=== PATIENT | female | born 1940 | race American Indian/Alaskan Native ===

== ENCOUNTER 2017-07-01 19:18 | Emergency (ER) | payer MEDICARE ==
[2017-07-01] MEDS ORDERED: Sodium Chloride 0.9% 1,000 ML IV ONE (20:04)
[2017-07-01] MEDS ORDERED: (Novolin R) Insulin Human Regular 100 units/ml vial IV STA (20:05)
[2017-07-01] MEDS ORDERED: Sodium Chloride 0.9% 1,000 ML ONE (20:12)
[2017-07-01] MEDS ORDERED: (Novolin R) Insulin Human Regular 100 units/ml vial ONE (20:12)
[2017-07-01 20:15] LABS: BASO # 0.1 K/uL (0.0-0.2); BASO % 0.9 % (0.0-2.0); EOS # 0.1 K/uL (0.0-0.7); EOS % 0.7 % (0.0-4.0); HEMOGLOBIN 12.7 g/dL (11.0-16.0); LYMPH # 3.8 K/uL (1.0-4.3); LYMPH % 35.9 % (20.0-40.0); MEAN CORPUSCULAR HEMOGLOBIN 30.8 pg (27.0-31.0); MEAN CORPUSCULAR HGB CONC 33.1 g/dL (33.0-37.0); MEAN PLATELET VOLUME 9.8 fL (7.2-11.7); MONO # 0.8 K/uL (0.0-0.8); MONO % 7.7 % (0.0-10.0); NEUT # 5.9 K/uL (1.8-7.0); NEUT % 54.8 % (50.0-75.0); NRBC % 0.1 % (0.0-2.0); RBC 4.14 Mil/uL (3.80-5.20); RED CELL DISTRIBUTION WIDTH 13.2 % (11.5-14.5); WHITE BLOOD COUNT 10.7 K/uL (4.8-10.8)
[2017-07-01 20:34] LABS: ALB/GLOB RATIO 1.2 (1.0-2.1); ALBUMIN 4.2 g/dL (3.5-5.0); ALT/SGPT 37 U/L (9-52); AST/SGOT 21 U/L (14-36); BLOOD UREA NITROGEN 20 mg/dL (7-17); CALCIUM 9.1 mg/dl (8.6-10.4); GFR AFRICAN-AMERICAN > 60; GFR NON-AFRICAN AMERICAN > 60
[2017-07-01 20:38] LABS: SQUAMOUS EPITHIAL 1 /hpf (0-5); URINE BILIRUBIN NEGATIVE (NEGATIVE); URINE BLOOD NEGATIVE (NEGATIVE); URINE CLARITY Clear (Clear); URINE COLOR Straw (YELLOW); URINE GLUCOSE (UA) 3+ mg/dL (Normal); URINE LEUKOCYTE ESTERASE NEG Leu/uL (Negative); URINE NITRATE NEGATIVE (NEGATIVE); URINE PROTEIN NEGATIVE (NEGATIVE); URINE UROBILINOGEN NORMAL mg/dL (0.2-1.0)
--- NOTE | 2017-07-01 21:33 | C.PDOC ---
History Of Present Illness 76 year old female brought in by daughters presents to ED for hyperglycemia and has a past medical history of diabetes mellitus. Confirm she was compliant with medication up until 2 years ago. (+) polyuria and polydipsia. Time Seen by Provider: 07/01/17 20:02 Chief Complaint (Nursing): High Blood Sugar History Per: Patient History/Exam Limitations: no limitations Current Diabetic Medications: None Causative (Exacerbating) Factor(s): Missed Taking Medication Past Medical History Reviewed: Historical Data, Nursing Documentation, Vital Signs Vital Signs: Last Vital Signs Temp 99 F 07/01/17 22:10 Pulse 80 07/01/17 22:10 Resp 16 07/01/17 22:10 BP 140/70 07/01/17 22:10 Pulse Ox 100 07/02/17 04:12 - Medical History PMH: Diabetes, HTN, Seizures Family History: States: No Known Family Hx - Social History Hx Alcohol Use: No Hx Substance Use: No Review Of Systems Except As Marked, All Systems Reviewed And Found Negative. Constitutional: Positive for: Other ((+) hyperglycemia) Gastrointestinal: Positive for: Other ((+) polydipsia) Genitourinary: Positive for: Other ((+) polyuria) Physical Exam - Physical Exam Appears: Well, No Acute Distress Skin: Normal Color, Warm, Dry Eye(s): bilateral: Normal Inspection, PERRL, EOMI Nose: Normal Oral Mucosa: Moist Tongue: Normal Appearing Lips: Normal Appearing Throat: Normal Neck: Normal Cardiovascular: Rhythm Regular Respiratory: Normal Breath Sounds Gastrointestinal/Abdominal: Normal Exam, Soft, No Tenderness Back: Normal Inspection Extremity: Normal ROM Neurological/Psych: Oriented x3, Normal Speech, Normal Cognition ED Course And Treatment - Laboratory Results Result Diagrams: 07/01/17 20:09 07/01/17 20:09 Lab Interpretation: Abnormal (++ glu, normal c02, neg ketones, + glucosuria, no ketones) O2 Sat by Pulse Oximetry: 100 (RA) Pulse Ox Interpretation: Normal - Radiology CXR: Interpreted by Me CXR Interpretation: Yes: No Acute Disease Progress Note: IVF, insulin, recheck and improved Reevaluation Time: 21:33 Reassessment Condition: Improved Medical Decision Making Medical Decision Making: uncontrolled DM without DKA (normal bicarb and no ketones) difficult to believe pt off all DM meds x 2 YEARS Restart Metformin PO and opt f/u. Disposition Doctor Will See Patient In The: Office Counseled Patient/Family Regarding: Studies Performed, Diagnosis - Disposition Referrals: Nicolas Cruz MD [Staff Provider] - Disposition: HOME/ ROUTINE Disposition Time: 21:34 Condition: GOOD Additional Instructions: Diabetes: Metformin 1000 mg twice a day with meals. Finger stick BEFORE breakfast and dinner and note in the small book that comes w the Finger Stick machine Diabetic diet: 4-5 small meals/day Bring the book of glucose readings to your next doctor's visit in 2-3 weeks Continue all other meds unchanged. Prescriptions: Glucose Meter [Blood Glucose Monitoring System] 1 dev XX PRN PRN #1 dev PRN Reason: diabetes Lancets/Blood Glucose Strips [Fora [id number] [facility]-Lnct] 1 each MC BID #60 combo..pkg MetFORMIN [glucoPHAGE] 1,000 mg PO BID #60 tab Instructions: Diabetes Mellitus Type 2 in Adults (ED) Forms: [employer] (Welsh) - Clinical Impression Clinical Impression: Hyperglycemia
[2017-07-01 22:11] VITALS: BP 140/70; PULSE 80; RESP 16; TEMP 99
[2017-07-02 04:12] VITALS: O2SAT 100
--- NOTE | 2017-07-02 08:35 | RAD ---
Chest x-ray single frontal view History: Diabetes. Comparison: None available. Findings: Diffuse increased interstitial lung markings bilaterally. Biapical pleural thickening with upper lobe granulomatous changes. Enlarged ectatic aorta. Right hilar prominence. Patchy bibasilar atelectasis. Degenerative changes in the spine with paravertebral osteophytes. Impression: Diffuse increased interstitial lung markings bilaterally. Biapical pleural thickening with upper lobe granulomatous changes. Enlarged ectatic aorta. Right hilar prominence. Patchy bibasilar atelectasis.
== END 2017-07-01 22:11 | disposition home or self-care (01) ==
LOC: C.ER 19:18
DX: E11.65 Type 2 diabetes mellitus with hyperglycemia (principal); I10 Essential (primary) hypertension
CPT/HCPCS: 71045; 80053; 81001; 82009; 82948; 85025; 99284; J7040

== ENCOUNTER 2017-12-14 12:18 | Emergency (ER) | payer MEDICARE ==
[2017-12-14 12:33] VITALS: BMI 20.7
[2017-12-14 13:42] LABS: BASO # 0.1 K/uL (0.0-0.2); BASO % 0.9 % (0.0-2.0); EOS # 0.1 K/uL (0.0-0.7); EOS % 1.2 % (0.0-4.0); HEMOGLOBIN 11.3 g/dL (11.0-16.0); LYMPH # 2.3 K/uL (1.0-4.3); LYMPH % 24.5 % (20.0-40.0); MEAN CELL VOLUME 93.2 fL (81.0-99.0); MEAN CORPUSCULAR HEMOGLOBIN 32.2 pg (27.0-31.0); MEAN CORPUSCULAR HGB CONC 34.6 g/dL (33.0-37.0); MEAN PLATELET VOLUME 8.3 fL (7.2-11.7); MONO # 0.8 K/uL (0.0-0.8); MONO % 8.3 % (0.0-10.0); NEUT % 65.1 % (50.0-75.0); RBC 3.51 Mil/uL (3.80-5.20); RED CELL DISTRIBUTION WIDTH 13.2 % (11.5-14.5); WHITE BLOOD COUNT 9.2 K/uL (4.8-10.8)
[2017-12-14 13:51] LABS: ALB/GLOB RATIO 1.6 (1.0-2.1); ALBUMIN 4.4 g/dL (3.5-5.0); ALT/SGPT 13 U/L (9-52); AST/SGOT 24 U/L (14-36); BLOOD UREA NITROGEN 14 mg/dL (7-17); CALCIUM 9.8 mg/dl (8.6-10.4); GFR AFRICAN-AMERICAN > 60; GFR NON-AFRICAN AMERICAN > 60
--- NOTE | 2017-12-14 14:25 | C.PDOC ---
History Of Present Illness 77 year old female sent to ED by her hazardous materials driver Dr. Blue for evaluation of low sodium level found on outpatient blood work (127). Patient denies chest pain, shortness of breath, headache, dizziness, weakness, or any other complaints at this time. Time Seen by Provider: 12/14/17 12:43 Chief Complaint (Nursing): Abnormal Labs History Per: Patient History/Exam Limitations: no limitations Severity: None Past Medical History Reviewed: Historical Data, Nursing Documentation, Vital Signs Vital Signs: Last Vital Signs Temp 98.4 F 12/14/17 14:35 Pulse 75 12/14/17 14:35 Resp 20 12/14/17 14:35 BP 138/70 12/14/17 14:35 Pulse Ox 99 12/15/17 16:37 - Medical History PMH: Diabetes, HTN, Seizures, TIA Family History: States: Unknown Family Hx - Social History Hx Alcohol Use: No Hx Substance Use: No Review Of Systems Except As Marked, All Systems Reviewed And Found Negative. Constitutional: Negative for: Fever, Chills Cardiovascular: Negative for: Chest Pain, Palpitations Respiratory: Negative for: Cough, Shortness of Breath Gastrointestinal: Negative for: Nausea, Vomiting, Abdominal Pain Neurological: Negative for: Weakness, Numbness, Headache, Dizziness Physical Exam - Physical Exam Appears: Well, Non-toxic, No Acute Distress Skin: Normal Color, Warm, Dry Head: Atraumatic, Normacephalic Eye(s): bilateral: Normal Inspection Oral Mucosa: Moist Neck: Supple Cardiovascular: Rhythm Regular, No Murmur Respiratory: Normal Breath Sounds, No Rales, No Rhonchi, No Wheezing Gastrointestinal/Abdominal: Normal Exam, Bowel Sounds, Soft, No Tenderness Extremity: Normal ROM, No Pedal Edema Neurological/Psych: Oriented x3, Normal Speech, Normal Cognition Gait: Steady ED Course And Treatment - Laboratory Results Result Diagrams: 12/14/17 13:35 12/14/17 13:35 O2 Sat by Pulse Oximetry: 99 (RA) Pulse Ox Interpretation: Normal Progress Note: Blood work ordered and reviewed. Patient's blood work in ED is 129, and patient is asymptomatic. Call placed to Dr. Blue's service, no call back. Reevaluation Time: 14:45 Reassessment Condition: Improved (Patient is resting comfortably, in no distress , has no physical complaints. She was instructed to follow up with Dr. Blue within 1 week, and understands she should return to ED if she has any concerning symptoms.) Disposition Counseled Patient/Family Regarding: Studies Performed, Diagnosis, Need For Followup - Disposition Referrals: Nicolas Cruz MD [Staff Provider] - Steffen Blue MD [Non-Staff] - Disposition: HOME/ ROUTINE Disposition Time: 14:45 Condition: STABLE Additional Instructions: FOLLOW UP WITH YOUR DOCTOR IN 1-2 DAYS RETURN TO ER IF YOU HAVE ANY CONCERNING SYMPTOMS Instructions: Hyponatremia (DC) Forms: [employer] (Brazilian) Print Language: TAJIK - Clinical Impression Clinical Impression: Hyponatremia - Scribe Statement The provider has reviewed the documentation as recorded by the Scribe Deysi Da Silva All medical record entries made by the Glennibtaiwo were at my direction and personally dictated by me. I have reviewed the chart and agree that the record accurately reflects my personal performance of the history, physical exam, medical decision making, and the department course for this patient. I have also personally directed, reviewed, and agree with the discharge instructions and disposition.
[2017-12-14 14:36] VITALS: BP 138/70; PULSE 75; RESP 20; TEMP 98.4
[2017-12-15 09:31] VITALS: O2SAT 99
== END 2017-12-14 14:49 | disposition home or self-care (01) ==
LOC: C.ER 12:18
DX: E87.1 Hypo-osmolality and hyponatremia (principal); I10 Essential (primary) hypertension; E11.9 Type 2 diabetes mellitus without complications; Z86.73 Personal history of transient ischemic attack (TIA), and cerebral infarction without residual deficits

== ENCOUNTER 2018-04-08 12:55 | Inpatient (IN) | payer MEDICARE ==
[2018-04-08 12:56] VITALS: BMI 20.7
--- NOTE | 2018-04-08 13:45 | C.PDOC ---
History Of Present Illness 77yo female, with history of diabetes, hypertension, CVA, seizure, comes to ER accompanied by her son, who reports for the past week, patient has had generalized weakness. History obtained primary from the son who states for the past 4 months, the patient has been getting progressively weak. He states at baseline she has difficulty walking secondary to a stroke; he states the patient now no longer wants to walk far or leave her bed as she is weak. Patient has also been having frequent falls due to weakness and her LEFT leg (stronger leg) is starting to shake when she attempts to walk. According to the son, patient has also been having more frequent bowel movements than usual and at time she is unable to make it to the bathroom and has a bowel movement in her diaper. She denies any new focal weakness, chest pain, shortness of breath, abdominal pain, headache, blurry vision or bodyaches. The son spoke with patient's PMD y , who recommended an ER visit. PMD: Dr. Cruz Time Seen by Provider: 04/08/18 13:24 Chief Complaint (Nursing): Weakness/Neurological Deficit History Per: Patient, Family (son) History/Exam Limitations: no limitations Past Medical History Reviewed: Historical Data, Nursing Documentation, Vital Signs Vital Signs: Last Vital Signs Temp 98.8 F 04/08/18 13:15 Pulse 81 04/08/18 13:15 Resp 20 04/08/18 13:15 BP 131/71 04/08/18 13:15 Pulse Ox 99 04/08/18 13:15 - Medical History PMH: Diabetes, HTN, Seizures, TIA Surgical History: No Surg Hx Family History: States: No Known Family Hx - Social History Hx Tobacco Use: No Hx Alcohol Use: No Hx Substance Use: No Review Of Systems Except As Marked, All Systems Reviewed And Found Negative. (as per HPI) Constitutional: Positive for: Weakness Eyes: Negative for: Vision Change Cardiovascular: Negative for: Chest Pain Respiratory: Negative for: Shortness of Breath Gastrointestinal: Positive for: Other (increased bowel movements). Negative for: Abdominal Pain Neurological: Negative for: Headache Physical Exam - Physical Exam Appears: Non-toxic, No Acute Distress, Chronically Ill, Other (tired appearing) Skin: Warm, Dry Head: Atraumatic, Normacephalic Eye(s): bilateral: Normal Inspection Oral Mucosa: Other (tacky) Neck: Normal ROM, Supple Chest: Symmetrical Cardiovascular: Rhythm Regular Respiratory: Normal Breath Sounds Gastrointestinal/Abdominal: Normal Exam, Soft, No Tenderness Back: Normal Inspection Extremity: Normal ROM (left upper and lower extremity), Other (right upper extremity and lower extremity weakness due to prior CVA) Neurological/Psych: Oriented x3, Other (mild slurred speech due to prior CVA) Other Neurological Findings: Facial Palsy (right sided facial droop) ED Course And Treatment - Laboratory Results Result Diagrams: 04/14/18 07:22 04/14/18 07:22 O2 Sat by Pulse Oximetry: 99 (RA) Pulse Ox Interpretation: Normal Medical Decision Making Medical Decision Making: Impression: Weakness Differential: Including but not limited to electrolyte abnormalities, de hydration, UTI, sepsis, heart failure, renal failure Plan: -- Labs -- CT Head w/o contrast -- Urinalysis 14:34 CT Head FINDINGS: HEMORRHAGE: No intracranial hemorrhage. BRAIN: Diffuse atrophy with prominence of the ventricles and sulci noted. No mass effect or edema. Dense intracranial atherosclerotic calcifications. Bilateral basal ganglia calcifications. Evidence of chronic infarction involving the left temporal lobe with ex vacuo dilatation of the temporal horn lateral ventricle. Scattered periventricular and subcortical white matter hypodensities, which are nonspecific, but often seen with chronic microvascular ischemic disease. Please note that MRI with diffusion imaging is more sensitive in the detection of acute ischemic event. VENTRICLES: No hydrocephalus. CALVARIUM: Unremarkable. PARANASAL SINUSES: Unremarkable as visualized. No significant inflammatory changes. MASTOID AIR CELLS: Unremarkable as visualized. No inflammatory changes. OTHER FINDINGS: Partially imaged probable partial volume averaging of the soft and hard palate on the left. Recommend direct inspection. If clinically, lesion is identified, follow-up CT soft tissue neck with IV contrast recommended. Opacification bilateral external auditory canals, likely cerumen. 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 Please note that MRI with diffusion imaging is more sensitive in the detection of acute ischemic event. Nonspecific white matter changes identified. Partially imaged probable partial volume averaging of the soft and hard palate on the left. Recommend direct inspection. If clinically, lesion is identified, follow-up CT soft tissue neck with IV contrast recommended. 15:[address] Cruz, patient's PMD who requests admission under Dr. Ingrid Da Silva. Dr Da Silva made aware 15:15 Discussed with patient and family regarding findings and plan of care and are agreeable. Disposition Counseled Patient/Family Regarding: Studies Performed, Diagnosis - Disposition Disposition: HOSPITALIZED Disposition Time: 15:15 Condition: FAIR - Clinical Impression Clinical Impression: Hyponatremia, Hyperglycemia, Muscle weakness - Scribe Statement The provider has reviewed the documentation as recorded by the Sadaf Gordillo Provider Attestation: All medical record entries made by the Sadaf were at my direction and personally dictated by me. I have reviewed the chart and agree that the record accurately reflects my personal performance of the history, physical exam, medical decision making, and the department course for this patient. I have also personally directed, reviewed, and agree with the discharge instructions and disposition.
[2018-04-08 13:55] LABS: BASO # 0.1 K/uL (0.0-0.2); BASO % 0.9 % (0.0-2.0); EOS # 0.2 K/uL (0.0-0.7); EOS % 1.3 % (0.0-4.0); HEMOGLOBIN 12.3 g/dL (11.0-16.0); LYMPH # 2.3 K/uL (1.0-4.3); LYMPH % 18.3 % (20.0-40.0); MEAN CELL VOLUME 91.9 fL (81.0-99.0); MEAN CORPUSCULAR HEMOGLOBIN 31.1 pg (27.0-31.0); MEAN CORPUSCULAR HGB CONC 33.8 g/dL (33.0-37.0); MEAN PLATELET VOLUME 8.9 fL (7.2-11.7); MONO # 0.9 K/uL (0.0-0.8); MONO % 6.8 % (0.0-10.0); NEUT # 9.1 K/uL (1.8-7.0); NEUT % 72.7 % (50.0-75.0); RBC 3.95 Mil/uL (3.80-5.20); RED CELL DISTRIBUTION WIDTH 13.5 % (11.5-14.5); WHITE BLOOD COUNT 12.5 K/uL (4.8-10.8)
[2018-04-08 14:04] LABS: INR 1.1; PROTHROMBIN TIME 11.5 SECONDS (9.7-12.2)
[2018-04-08 14:07] LABS: BLOOD UREA NITROGEN 15 mg/dL (7-17); CALCIUM 9.9 mg/dl (8.6-10.4); GFR NON-AFRICAN AMERICAN > 60
--- NOTE | 2018-04-08 14:11 | RAD ---
Date of service: 04/08/2018 PROCEDURE: CHEST RADIOGRAPH, 1 VIEW HISTORY: weakness COMPARISON: Chest radiograph dated 07/01/2017. FINDINGS: LUNGS: Stable chronic prominence of the bilateral interstitial markings with superimposed pulmonary vascular congestion. No focal consolidation. PLEURA: Elevation of the left hemidiaphragm.. CARDIOVASCULAR: Aortic atherosclerotic calcifications. Cardiomediastinal silhouette stably enlarged. OSSEOUS STRUCTURES: Unchanged. VISUALIZED UPPER ABDOMEN: Normal. OTHER FINDINGS: None. IMPRESSION: No active disease.
[2018-04-08 14:18] LABS: B-TYPE NATRIURETIC PEPTIDE 313 pg/mL (0-900)
[2018-04-08 14:36] LABS: ALB/GLOB RATIO 1.4 (1.0-2.1); ALBUMIN 4.8 g/dL (3.5-5.0); ALT/SGPT 31 U/L (9-52); AST/SGOT 41 U/L (14-36)
--- NOTE | 2018-04-08 14:57 | CT ---
Date of service: 04/08/2018 PROCEDURE: CT HEAD WITHOUT CONTRAST. HISTORY: weakness and frequent falls h/o CVAs COMPARISON: None available. TECHNIQUE: Axial computed tomography images were obtained through the head/brain without intravenous contrast. Radiation dose: Total exam DLP = 1072.94 mGy-cm. This CT exam was performed using one or more of the following dose reduction techniques: Automated exposure control, adjustment of the mA and/or kV according to patient size, and/or use of iterative reconstruction technique. FINDINGS: HEMORRHAGE: No intracranial hemorrhage. BRAIN: Diffuse atrophy with prominence of the ventricles and sulci noted. No mass effect or edema. Dense intracranial atherosclerotic calcifications. Bilateral basal ganglia calcifications. Evidence of chronic infarction involving the left temporal lobe with ex vacuo dilatation of the temporal horn lateral ventricle. Scattered periventricular and subcortical white matter hypodensities, which are nonspecific, but often seen with chronic microvascular ischemic disease. Please note that MRI with diffusion imaging is more sensitive in the detection of acute ischemic event. VENTRICLES: No hydrocephalus. CALVARIUM: Unremarkable. PARANASAL SINUSES: Unremarkable as visualized. No significant inflammatory changes. MASTOID AIR CELLS: Unremarkable as visualized. No inflammatory changes. OTHER FINDINGS: Partially imaged probable partial volume averaging of the soft and hard palate on the left. Recommend direct inspection. If clinically, lesion is identified, follow-up CT soft tissue neck with IV contrast recommended. Opacification bilateral external auditory canals, likely cerumen. 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 Please note that MRI with diffusion imaging is more sensitive in the detection of acute ischemic event. Nonspecific white matter changes identified. Partially imaged probable partial volume averaging of the soft and hard palate on the left. Recommend direct inspection. If clinically, lesion is identified, follow-up CT soft tissue neck with IV contrast recommended.
[2018-04-08 15:27] LABS: SQUAMOUS EPITHIAL 2 /hpf (0-5); URINE BILIRUBIN NEGATIVE (NEGATIVE); URINE BLOOD NEGATIVE (NEGATIVE); URINE CLARITY Clear (Clear); URINE COLOR Yellow (YELLOW); URINE GLUCOSE (UA) NORMAL (Normal); URINE LEUKOCYTE ESTERASE TRACE Leu/uL (Negative); URINE PROTEIN NEGATIVE (NEGATIVE); URINE UROBILINOGEN NORMAL mg/dL (0.2-1.0)
[2018-04-08 16:30] LABS: BLOOD UREA NITROGEN 14 mg/dL (7-17); CALCIUM 9.8 mg/dl (8.6-10.4); GFR NON-AFRICAN AMERICAN > 60
[2018-04-08] MEDS ORDERED: Dextrose 50% SYRINGE Inj (50 ml) IV PRN (16:58)
[2018-04-08] MEDS ORDERED: Glucagon Recombinant 1 mg Inj IM PRN (16:58)
--- NOTE | 2018-04-08 20:12 | CP.PCM.HP ---
Past Patient History - Past Social History Smoking Status: Never Smoked - CARDIAC Hx Cardiac Disorders: Yes Hx Hypertension: Yes - PULMONARY Hx Respiratory Disorders: No - NEUROLOGICAL Hx Neurological Disorder: Yes HX Cerebrovascular Accident: Yes Hx Seizures: Yes Hx Transient Ischemic Attacks (TIA): Yes - HEENT Hx HEENT Problems: No - RENAL Hx Chronic Kidney Disease: No - ENDOCRINE/METABOLIC Hx Endocrine Disorders: Yes Hx Diabetes Mellitus Type 1: Yes - HEMATOLOGICAL/ONCOLOGICAL Hx Blood Disorders: No - INTEGUMENTARY Hx Dermatological Problems: No - MUSCULOSKELETAL/RHEUMATOLOGICAL Hx Musculoskeletal Disorders: Yes Hx Falls: Yes - GASTROINTESTINAL Hx Gastrointestinal Disorders: No - GENITOURINARY/GYNECOLOGICAL Hx Genitourinary Disorders: No - PSYCHIATRIC Hx Substance Use: No - SURGICAL HISTORY Hx Surgeries: Yes Hx Hysterectomy: Yes - ANESTHESIA Hx Anesthesia: Yes Hx Anesthesia Reactions: No Hx Malignant Hyperthermia: No Has any member of the family had a problem w/ anesthesia?: No Meds Allergies/Adverse Reactions: Allergies Allergy/AdvReac Type Severity Reaction Status Date / Time Penicillins Allergy HIVES Verified 04/08/18 13:23 Physical Exam - Constitutional Appears: Well - Head Exam Head Exam: ATRAUMATIC, NORMAL INSPECTION, NORMOCEPHALIC - Eye Exam Eye Exam: EOMI, Normal appearance, PERRL Pupil Exam: NORMAL ACCOMODATION, PERRL - ENT Exam ENT Exam: Mucous Membranes Moist, Normal Exam - Neck Exam Neck exam: Positive for: Normal Inspection - Respiratory Exam Respiratory Exam: Decreased Breath Sounds - Cardiovascular Exam Cardiovascular Exam: REGULAR RHYTHM, +S1, +S2 - GI/Abdominal Exam GI & Abdominal Exam: Diminished Bowel Sounds, Soft - Rectal Exam Rectal Exam: Deferred Results - Vital Signs Recent Vital Signs: Last Vital Signs Temp 98.8 F 04/08/18 13:15 Pulse 69 04/08/18 18:00 Resp 18 04/08/18 16:28 BP 145/83 04/08/18 16:28 Pulse Ox 97 04/08/18 16:28 - Labs Result Diagrams: 04/08/18 13:52 04/08/18 16:13 Labs: Laboratory Results - last 24 hr 04/08/18 04/08/18 04/08/18 13:52 13:52 13:52 WBC 12.5 H RBC 3.95 Hgb 12.3 Hct 36.3 MCV 91.9 MCH 31.1 H MCHC 33.8 RDW 13.5 Plt Count 237 MPV 8.9 Neut % (Auto) 72.7 Lymph % (Auto) 18.3 L Swisher % (Auto) 6.8 Eos % (Auto) 1.3 Baso % (Auto) 0.9 Neut # (Auto) 9.1 H Lymph # (Auto) 2.3 Swisher # (Auto) 0.9 H Eos # (Auto) 0.2 Baso # (Auto) 0.1 PT 11.5 INR 1.1 APTT 32 Sodium 129 L Potassium 5.6 H Chloride 88 L Carbon Dioxide 25 Anion Gap 22 H BUN 15 Creatinine 0.7 Est GFR ( Amer) > 60 Est GFR (Non-Af Amer) > 60 POC Glucose (mg/dL) Random Glucose 171 H Calcium 9.9 Phosphorus 3.8 Magnesium 1.4 L Total Bilirubin 0.9 AST 41 H D ALT 31 Alkaline Phosphatase 56 Troponin I 0.0170 NT-Pro-B Natriuret Pep 313 Total Protein 8.1 Albumin 4.8 Globulin 3.4 Albumin/Globulin Ratio 1.4 TSH 3rd Generation 1.61 Urine Color Urine Clarity Urine pH Ur Specific Colrain Urine Protein Urine Glucose (UA) Urine Ketones Urine Blood Urine Nitrate Urine Bilirubin Urine Urobilinogen Ur Leukocyte Esterase Urine WBC (Auto) Urine RBC (Auto) Ur Squamous Epith Cells 04/08/18 04/08/18 04/08/18 14:01 15:13 16:13 WBC RBC Hgb Hct MCV MCH MCHC RDW Plt Count MPV Neut % (Auto) Lymph % (Auto) Swisher % (Auto) Eos % (Auto) Baso % (Auto) Neut # (Auto) Lymph # (Auto) Swisher # (Auto) Eos # (Auto) Baso # (Auto) PT INR APTT Sodium 130 L Potassium 4.8 Chloride 90 L Carbon Dioxide 27 Anion Gap 19 BUN 14 Creatinine 0.7 Est GFR ( Amer) > 60 Est GFR (Non-Af Amer) > 60 POC Glucose (mg/dL) 167 H Random Glucose 124 H Calcium 9.8 Phosphorus Magnesium Total Bilirubin AST ALT Alkaline Phosphatase Troponin I NT-Pro-B Natriuret Pep Total Protein Albumin Globulin Albumin/Globulin Ratio TSH 3rd Generation Urine Color Yellow Urine Clarity Clear Urine pH 6.0 Ur Specific Colrain 1.015 Urine Protein Negative Urine Glucose (UA) Normal Urine Ketones Negative Urine Blood Negative Urine Nitrate Negative Urine Bilirubin Negative Urine Urobilinogen Normal Ur Leukocyte Esterase Trace Urine WBC (Auto) 8 H Urine RBC (Auto) 1 Ur Squamous Epith Cells 2
[2018-04-08] MEDS: (Novolog) Insulin Aspart, Recombinant 100 u/ml 10 ml vial SC SCH (21:24)
[2018-04-09 07:19] LABS: BASO % 0.4 % (0.0-2.0); EOS # 0.2 K/uL (0.0-0.7); EOS % 2.1 % (0.0-4.0); HEMOGLOBIN 11.4 g/dL (11.0-16.0); LYMPH # 3.3 K/uL (1.0-4.3); LYMPH % 34.4 % (20.0-40.0); MEAN CELL VOLUME 90.7 fL (81.0-99.0); MEAN CORPUSCULAR HEMOGLOBIN 31.4 pg (27.0-31.0); MEAN CORPUSCULAR HGB CONC 34.6 g/dL (33.0-37.0); MEAN PLATELET VOLUME 9.2 fL (7.2-11.7); MONO # 0.9 K/uL (0.0-0.8); MONO % 8.9 % (0.0-10.0); NEUT # 5.2 K/uL (1.8-7.0); NEUT % 54.2 % (50.0-75.0); RBC 3.63 Mil/uL (3.80-5.20); WHITE BLOOD COUNT 9.6 K/uL (4.8-10.8)
[2018-04-09 07:24] LABS: ALB/GLOB RATIO 1.5 (1.0-2.1); BLOOD UREA NITROGEN 11 mg/dL (7-17)
[2018-04-09] MEDS: (Novolog) Insulin Aspart, Recombinant 100 u/ml 10 ml vial SC SCH ×4 (08:26→21:14)
[2018-04-09 08:42] LABS: ALBUMIN 3.7 g/dL (3.5-5.0); ALT/SGPT 36 U/L (9-52); AST/SGOT 19 U/L (14-36); CALCIUM 9.2 mg/dl (8.6-10.4); GFR NON-AFRICAN AMERICAN > 60
[2018-04-09] MEDS: Enoxaparin 40 mg Syringe SC SCH (09:41)
[2018-04-09] MEDS: Aspirin 325 mg EC Tablets PO SCH (09:42)
--- NOTE | 2018-04-09 11:15 | CARD ---
APPROVED REPORT Date of service: 04/08/2018 EKG Measurement Heart [id number] <Conclusion> Normal sinus rhythm Possible Left atrial enlargement Borderline ECG
--- NOTE | 2018-04-09 18:33 | CP.PCM.PN ---
Subjective - Date & Time of Evaluation Date of Evaluation: 04/09/18 Time of Evaluation: 08:15 - Subjective Subjective: clinically same Objective - Vital Signs/Intake and Output Vital Signs (last 24 hours): Temp Pulse Resp BP Pulse Ox 98.2 F 76 18 143/73 97 04/09/18 16:08 04/09/18 16:24 04/09/18 16:08 04/09/18 16:08 04/09/18 16:08 - Medications Medications: Current Medications Amitriptyline HCl (Elavil) 10 mg PO [facility] Last Admin: 04/08/18 21:23 Dose: 10 mg Amlodipine Besylate (Norvasc) 10 mg PO DAILY COUNTS INCLUDE 234 BEDS AT THE [facility] Last Admin: 04/09/18 09:41 Dose: 10 mg Aspirin (Ecotrin) 325 mg PO DAILY COUNTS INCLUDE 234 BEDS AT THE [facility] Last Admin: 04/09/18 09:42 Dose: 325 mg Dextrose (Dextrose 50% Inj) 0 ml IV STAT PRN; Protocol PRN Reason: Hypoglycemia Protocol Dextrose (Glutose 15) 0 gm PO ONCE PRN; Protocol PRN Reason: Hypoglycemia Protocol Donepezil HCl (Aricept) 10 mg PO DAILY COUNTS INCLUDE 234 BEDS AT THE [facility] Last Admin: 04/09/18 09:41 Dose: 10 mg Enoxaparin Sodium (Lovenox) 40 mg SC DAILY COUNTS INCLUDE 234 BEDS AT THE [facility] Last Admin: 04/09/18 09:41 Dose: 40 mg Glimepiride (Amaryl) 2 mg PO BID COUNTS INCLUDE 234 BEDS AT THE [facility] Last Admin: 04/09/18 17:32 Dose: Not Given Glucagon (Glucagen Diagnostic Kit) 0 mg IM STAT PRN; Protocol PRN Reason: Hypoglycemia Protocol Hydrochlorothiazide (Microzide) 12.5 mg PO DAILY COUNTS INCLUDE 234 BEDS AT THE [facility] Last Admin: 04/09/18 09:41 Dose: 12.5 mg Dextrose (Dextrose 5% In Water 1000 Ml) 1,000 mls @ 0 mls/hr IV .Q0M PRN; Protocol PRN Reason: Hypoglycemia Protocol Insulin Aspart (Novolog) 0 unit SC [facility]; Protocol Last Admin: 04/09/18 17:28 Dose: Not Given Levetiracetam (Keppra) 500 mg PO BID COUNTS INCLUDE 234 BEDS AT THE [facility] Last Admin: 04/09/18 17:27 Dose: 500 mg Lisinopril (Zestril) 10 mg PO BID COUNTS INCLUDE 234 BEDS AT THE [facility] Last Admin: 04/09/18 17:32 Dose: 10 mg Memantine (Namenda) 10 mg PO DAILY COUNTS INCLUDE 234 BEDS AT THE [facility] Last Admin: 04/09/18 09:42 Dose: 10 mg Metformin HCl (Glucophage) 1,000 mg PO BID COUNTS INCLUDE 234 BEDS AT THE [facility] Last Admin: 04/09/18 17:27 Dose: 1,000 mg Pneumococcal Polyvalent Vaccine (Pneumovax 23 Vaccine) 0.5 ml IM .ONCE ONE Stop: 04/10/18 10:01 Rosuvastatin Calcium (Crestor) 40 mg PO [facility] Last Admin: 04/08/18 21:23 Dose: 40 mg - Labs Labs: 04/09/18 06:47 04/09/18 06:47 PT 11.5 SECONDS (9.7-12.2) 04/08/18 13:52 INR 1.1 04/08/18 13:52 APTT 32 SECONDS (21-34) 04/08/18 13:52
[2018-04-10 06:28] LABS: BASO # 0.1 K/uL (0.0-0.2); BASO % 0.4 % (0.0-2.0); EOS # 0.2 K/uL (0.0-0.7); EOS % 1.7 % (0.0-4.0); HEMOGLOBIN 11.6 g/dL (11.0-16.0); LYMPH # 3.7 K/uL (1.0-4.3); LYMPH % 25.6 % (20.0-40.0); MEAN CELL VOLUME 91.2 fL (81.0-99.0); MEAN CORPUSCULAR HEMOGLOBIN 30.3 pg (27.0-31.0); MEAN CORPUSCULAR HGB CONC 33.2 g/dL (33.0-37.0); MEAN PLATELET VOLUME 8.6 fL (7.2-11.7); MONO # 1.1 K/uL (0.0-0.8); MONO % 7.4 % (0.0-10.0); NEUT # 9.3 K/uL (1.8-7.0); NEUT % 64.9 % (50.0-75.0); RBC 3.83 Mil/uL (3.80-5.20); RED CELL DISTRIBUTION WIDTH 13.1 % (11.5-14.5); WHITE BLOOD COUNT 14.4 K/uL (4.8-10.8)
[2018-04-10 06:46] LABS: BLOOD UREA NITROGEN 13 mg/dL (7-17)
[2018-04-10 06:50] LABS: ALB/GLOB RATIO 1.4 (1.0-2.1); ALBUMIN 3.8 g/dL (3.5-5.0); ALT/SGPT 35 U/L (9-52); AST/SGOT 32 U/L (14-36); CALCIUM 9.3 mg/dl (8.6-10.4); GFR NON-AFRICAN AMERICAN > 60
[2018-04-10] MEDS: Magnesium Sulfate 1 gm in D5W 1 GM/100 ML BAG IVPB SCH ×2 (07:49→09:43)
[2018-04-10] MEDS ORDERED: Magnesium Sulfate 1 gm in D5W 1 GM/100 ML BAG IVPB ONE (07:54)
--- NOTE | 2018-04-10 07:56 | CP.PCM.PN ---
Subjective - Date & Time of Evaluation Date of Evaluation: 04/10/18 Time of Evaluation: 07:35 - Subjective Subjective: KENO CLERK NOTES CC- BIGEMINI, TRIGEMINI ON TEL MONITOR RN called and notified on aurora monitor bigemini and trigemini as per RN since 04/08 on monitor frequent PVC and last night bigeminy noted patient seen and examined at bed side, alert, oriented to person and place , denies any cest eli, sob, palpitations vss- stable stat EKG ordered labs reviewed - hypomagnesemia - magnesium ivbp x [address] Stone consulted and notified , will see patient Objective - Vital Signs/Intake and Output Vital Signs (last 24 hours): Temp Pulse Resp BP Pulse Ox 97.9 F 71 20 122/64 97 04/09/18 23:30 04/10/18 00:15 04/09/18 23:30 04/09/18 23:30 04/09/18 23:30 Intake and Output: 04/10/18 04/10/18 06:59 18:59 Intake Total 240 Balance 240 - Medications Medications: Current Medications Amitriptyline HCl (Elavil) 10 mg PO HS [facility] Last Admin: 04/09/18 21:14 Dose: 10 mg Amlodipine Besylate (Norvasc) 10 mg PO DAILY [facility] Last Admin: 04/09/18 09:41 Dose: 10 mg Aspirin (Ecotrin) 325 mg PO DAILY [facility] Last Admin: 04/09/18 09:42 Dose: 325 mg Dextrose (Dextrose 50% Inj) 0 ml IV STAT PRN; Protocol PRN Reason: Hypoglycemia Protocol Dextrose (Glutose 15) 0 gm PO ONCE PRN; Protocol PRN Reason: Hypoglycemia Protocol Donepezil HCl (Aricept) 10 mg PO DAILY [facility] Last Admin: 04/09/18 09:41 Dose: 10 mg Enoxaparin Sodium (Lovenox) 40 mg SC DAILY [facility] Last Admin: 04/09/18 09:41 Dose: 40 mg Glimepiride (Amaryl) 2 mg PO BID [facility] Last Admin: 04/09/18 17:32 Dose: Not Given Glucagon (Glucagen Diagnostic Kit) 0 mg IM STAT PRN; Protocol PRN Reason: Hypoglycemia Protocol Hydrochlorothiazide (Microzide) 12.5 mg PO DAILY [facility] Last Admin: 04/09/18 09:41 Dose: 12.5 mg Dextrose (Dextrose 5% In Water 1000 Ml) 1,000 mls @ 0 mls/hr IV .Q0M PRN; Protocol PRN Reason: Hypoglycemia Protocol Magnesium Sulfate/Dextrose (Magnesium Sulfate 1 Gm/100 Ml D5w) 1 gm in 100 mls @ 100 mls/hr IVPB Q1H [facility] Stop: 04/10/18 09:44 Last Admin: 04/10/18 07:49 Dose: 100 mls/hr Magnesium Sulfate/Dextrose (Magnesium Sulfate 1 Gm/100 Ml D5w) 1 gm in 100 mls @ 200 mls/hr IVPB ONCE ONE Stop: 04/10/18 08:23 Insulin Aspart (Novolog) 0 unit SC [facility]; Protocol Last Admin: 04/09/18 21:14 Dose: Not Given Levetiracetam (Keppra) 500 mg PO BID [facility] Last Admin: 04/09/18 17:27 Dose: 500 mg Lisinopril (Zestril) 10 mg PO BID [facility] Last Admin: 04/09/18 17:32 Dose: 10 mg Memantine (Namenda) 10 mg PO DAILY [facility] Last Admin: 04/09/18 09:42 Dose: 10 mg Metformin HCl (Glucophage) 1,000 mg PO BID [facility] Last Admin: 04/09/18 17:27 Dose: 1,000 mg Pneumococcal Polyvalent Vaccine (Pneumovax 23 Vaccine) 0.5 ml IM .ONCE ONE Stop: 04/10/18 10:01 Rosuvastatin Calcium (Crestor) 40 mg PO HS [facility] Last Admin: 04/09/18 21:14 Dose: 40 mg - Labs Labs: 04/10/18 06:11 04/10/18 06:11 PT 11.5 SECONDS (9.7-12.2) 04/08/18 13:52 INR 1.1 04/08/18 13:52 APTT 32 SECONDS (21-34) 04/08/18 13:52
[2018-04-10] MEDS: (Novolog) Insulin Aspart, Recombinant 100 u/ml 10 ml vial SC SCH ×4 (08:25→21:25)
[2018-04-10] MEDS ORDERED: Pneumococcal 23-Valent Vaccine IM ONE ×2 (10:00→13:50)
--- NOTE | 2018-04-10 10:40 | CP.PCM.CON ---
History of Present Illness - History of Present Illness History of Present Illness: We are called due PVCs and PACs in [facility] on TELE. Elderly woman Poor historian,; Knows name, home address and that she is in hospital for weakness Presents with genarilzed weakness and fecal incontinence: Per chart; son reports functional decline over 4 months. 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 Baseline reported to be minimally active from bed to bathroom with assistance. Denies CP, SOB, fevers or chills. PMHX: HTN controlled, DM mild , CVA L. teomporal residual L. sided weakness, Seizure d/o Review of Systems - Review of Systems All systems: reviewed and no additional remarkable complaints except - Constitutional Constitutional: As Per HPI - EENT Eyes: As Per HPI - Cardiovascular Cardiovascular: absent: Chest Pain, Dyspnea, Edema, Leg Edema - Respiratory Respiratory: absent: Cough, Chest Congestion - Gastrointestinal Gastrointestinal: As Per HPI - Musculoskeletal Musculoskeletal: As Per HPI - Neurological Neurological: As Per HPI Past Patient History - Past Social History Smoking Status: Never Smoked - CARDIAC Hx Cardiac Disorders: Yes Hx Hypertension: Yes - PULMONARY Hx Respiratory Disorders: No - NEUROLOGICAL Hx Neurological Disorder: Yes HX Cerebrovascular Accident: Yes Hx Seizures: Yes Hx Transient Ischemic Attacks (TIA): Yes - HEENT Hx HEENT Problems: No - RENAL Hx Chronic Kidney Disease: No - ENDOCRINE/METABOLIC Hx Endocrine Disorders: Yes Hx Diabetes Mellitus Type 1: Yes - HEMATOLOGICAL/ONCOLOGICAL Hx Blood Disorders: No - INTEGUMENTARY Hx Dermatological Problems: No - MUSCULOSKELETAL/RHEUMATOLOGICAL Hx Musculoskeletal Disorders: Yes Hx Falls: Yes - GASTROINTESTINAL Hx Gastrointestinal Disorders: No - GENITOURINARY/GYNECOLOGICAL Hx Genitourinary Disorders: No - PSYCHIATRIC Hx Substance Use: No - SURGICAL HISTORY Hx Surgeries: Yes Hx Hysterectomy: Yes - ANESTHESIA Hx Anesthesia: Yes Hx Anesthesia Reactions: No Hx Malignant Hyperthermia: No Has any member of the family had a problem w/ anesthesia?: No Meds Allergies/Adverse Reactions: Allergies Allergy/AdvReac Type Severity Reaction Status Date / Time Penicillins Allergy HIVES Verified 04/08/18 13:23 - Medications Medications: Current Medications Amitriptyline HCl (Elavil) 10 mg PO HS [facility] Last Admin: 04/09/18 21:14 Dose: 10 mg Amlodipine Besylate (Norvasc) 10 mg PO DAILY [facility] Last Admin: 04/09/18 09:41 Dose: 10 mg Aspirin (Ecotrin) 325 mg PO DAILY [facility] Last Admin: 04/09/18 09:42 Dose: 325 mg Dextrose (Dextrose 50% Inj) 0 ml IV STAT PRN; Protocol PRN Reason: Hypoglycemia Protocol Dextrose (Glutose 15) 0 gm PO ONCE PRN; Protocol PRN Reason: Hypoglycemia Protocol Donepezil HCl (Aricept) 10 mg PO DAILY [facility] Last Admin: 04/09/18 09:41 Dose: 10 mg Enoxaparin Sodium (Lovenox) 40 mg SC DAILY [facility] Last Admin: 04/09/18 09:41 Dose: 40 mg Glimepiride (Amaryl) 2 mg PO BID [facility] Last Admin: 04/09/18 17:32 Dose: Not Given Glucagon (Glucagen Diagnostic Kit) 0 mg IM STAT PRN; Protocol PRN Reason: Hypoglycemia Protocol Hydrochlorothiazide (Microzide) 12.5 mg PO DAILY [facility] Last Admin: 04/09/18 09:41 Dose: 12.5 mg Dextrose (Dextrose 5% In Water 1000 Ml) 1,000 mls @ 0 mls/hr IV .Q0M PRN; Protocol PRN Reason: Hypoglycemia Protocol Insulin Aspart (Novolog) 0 unit SC [facility]; Protocol Last Admin: 04/10/18 08:25 Dose: Not Given Levetiracetam (Keppra) 500 mg PO BID [facility] Last Admin: 04/09/18 17:27 Dose: 500 mg Lisinopril (Zestril) 10 mg PO BID [facility] Last Admin: 04/09/18 17:32 Dose: 10 mg Memantine (Namenda) 10 mg PO DAILY [facility] Last Admin: 04/09/18 09:42 Dose: 10 mg Metformin HCl (Glucophage) 1,000 mg PO BID [facility] Last Admin: 04/09/18 17:27 Dose: 1,000 mg Rosuvastatin Calcium (Crestor) 40 mg PO HS [facility] Last Admin: 04/09/18 21:14 Dose: 40 mg Physical Exam - Constitutional Appears: No Acute Distress, Chronically Ill - Head Exam Head Exam: ATRAUMATIC, NORMAL INSPECTION, NORMOCEPHALIC - Eye Exam Eye Exam: EOMI, Normal appearance - ENT Exam ENT Exam: Mucous Membranes Moist, Normal Oropharynx - Neck Exam Neck exam: Positive for: Full Rom. Negative for: Tenderness, Thyromegaly - Respiratory Exam Respiratory Exam: Clear to Auscultation Bilateral. absent: Rhonchi, Wheezes - Cardiovascular Exam Cardiovascular Exam: REGULAR RHYTHM, +S1, +S2. absent: Gallop, Systolic Murmur - GI/Abdominal Exam GI & Abdominal Exam: Normal Bowel Sounds, Soft. absent: Mass, Pulsatile Mass, Tenderness - Extremities Exam Extremities exam: Positive for: pedal pulses present (weak B/L). Negative for: calf tenderness, pedal edema Results - Vital Signs Recent Vital Signs: Last Vital Signs Temp 98.5 F 04/10/18 08:00 Pulse 68 04/10/18 08:00 Resp 20 04/10/18 08:00 BP 135/65 04/10/18 08:00 Pulse Ox 96 04/10/18 08:00 - Labs Result Diagrams: 04/10/18 06:11 04/10/18 06:11 Labs: Laboratory Results - last 24 hr 04/09/18 04/09/18 04/09/18 06:15 10:53 15:50 WBC RBC Hgb Hct MCV MCH MCHC RDW Plt Count MPV Neut % (Auto) Lymph % (Auto) [place] % (Auto) Eos % (Auto) Baso % (Auto) Neut # (Auto) Lymph # (Auto) [place] # (Auto) Eos # (Auto) Baso # (Auto) Sodium Potassium Chloride Carbon Dioxide Anion Gap BUN Creatinine Est GFR ( Amer) Est GFR (Non-Af Amer) POC Glucose (mg/dL) 98 159 H 77 Random Glucose Calcium Phosphorus Magnesium Total Bilirubin AST ALT Alkaline Phosphatase Troponin I Total Protein Albumin Globulin Albumin/Globulin Ratio 04/09/18 04/10/18 04/10/18 20:50 06:11 06:11 WBC 14.4 H RBC 3.83 Hgb 11.6 Hct 34.9 MCV 91.2 MCH 30.3 MCHC 33.2 RDW 13.1 Plt Count 216 MPV 8.6 Neut % (Auto) 64.9 Lymph % (Auto) 25.6 [place] % (Auto) 7.4 Eos % (Auto) 1.7 Baso % (Auto) 0.4 Neut # (Auto) 9.3 H Lymph # (Auto) 3.7 [place] # (Auto) 1.1 H Eos # (Auto) 0.2 Baso # (Auto) 0.1 Sodium 127 L Potassium 4.4 Chloride 91 L Carbon Dioxide 25 Anion Gap 15 BUN 13 Creatinine 0.6 L Est GFR ( Amer) > 60 Est GFR (Non-Af Amer) > 60 POC Glucose (mg/dL) 91 Random Glucose 82 Calcium 9.3 Phosphorus 2.9 Magnesium 1.3 L Total Bilirubin 0.3 AST 32 ALT 35 Alkaline Phosphatase 74 Troponin I < 0.0120 Total Protein 6.3 Albumin 3.8 Globulin 2.6 Albumin/Globulin Ratio 1.4 04/10/18 06:36 WBC RBC Hgb Hct MCV MCH MCHC RDW Plt Count MPV Neut % (Auto) Lymph % (Auto) [place] % (Auto) Eos % (Auto) Baso % (Auto) Neut # (Auto) Lymph # (Auto) [place] # (Auto) Eos # (Auto) Baso # (Auto) Sodium Potassium Chloride Carbon Dioxide Anion Gap BUN Creatinine Est GFR ( Amer) Est GFR (Non-Af Amer) POC Glucose (mg/dL) 143 H Random Glucose Calcium Phosphorus Magnesium Total Bilirubin AST ALT Alkaline Phosphatase Troponin I Total Protein Albumin Globulin Albumin/Globulin Ratio - EKG Data EKG Interpreted by: Myself Assessment & Plan - Assessment and Plan (Free Text) Assessment: 77 y/o woman with chronic CVA and reduced functional status due to R. sided weakness 2-3/5 EKG: NSR, LAE, no acute ischemic changes CXR: mild congestion, aortic calcification, no infiltrate CT had: old L. remporal infarct, no ICH TELE: PVCs and PACS in a bigeminal pattern: Labs: Normal H/H, Normal creat and K+ with hypomagnesemia : Now being replaced There are no signs of CHF or volume overload. NO CP or palpitation. PVCs may be due to low magnesium: replace and repeat lytes and Mg. If persistent can consider reduce Norvasc and replace with metoprolol 25 ER DVT prophylaxis DM: sugars 159 range, cont Rx HTN: Bp controlled CVA/Seizure d/o: cont ASA, statin and seizure meds Nutrition assessment.
[2018-04-10] MEDS: Enoxaparin 40 mg Syringe SC SCH (11:00)
[2018-04-10] MEDS: Aspirin 325 mg EC Tablets PO SCH (11:00)
[2018-04-10] MEDS ORDERED: Sodium Chloride 0.9% 1,000 ML IV SCH (14:30)
--- NOTE | 2018-04-10 18:03 | CP.PCM.PN ---
Subjective - Date & Time of Evaluation Date of Evaluation: 04/10/18 Time of Evaluation: 07:30 - Subjective Subjective: clinically same Objective - Vital Signs/Intake and Output Vital Signs (last 24 hours): Temp Pulse Resp BP Pulse Ox 98.2 F 68 20 124/71 95 04/10/18 15:58 04/10/18 15:58 04/10/18 15:58 04/10/18 15:58 04/10/18 15:58 Intake and Output: 04/10/18 04/10/18 06:59 18:59 Intake Total 240 700 Balance 240 700 - Medications Medications: Current Medications Amitriptyline HCl (Elavil) 10 mg PO HS [facility] Last Admin: 04/09/18 21:14 Dose: 10 mg Amlodipine Besylate (Norvasc) 10 mg PO DAILY [facility] Last Admin: 04/10/18 11:00 Dose: 10 mg Aspirin (Ecotrin) 325 mg PO DAILY [facility] Last Admin: 04/10/18 11:00 Dose: 325 mg Dextrose (Dextrose 50% Inj) 0 ml IV STAT PRN; Protocol PRN Reason: Hypoglycemia Protocol Dextrose (Glutose 15) 0 gm PO ONCE PRN; Protocol PRN Reason: Hypoglycemia Protocol Donepezil HCl (Aricept) 10 mg PO DAILY [facility] Last Admin: 04/10/18 11:00 Dose: 10 mg Enoxaparin Sodium (Lovenox) 40 mg SC DAILY [facility] Last Admin: 04/10/18 11:00 Dose: 40 mg Glimepiride (Amaryl) 2 mg PO BID [facility] Last Admin: 04/10/18 17:05 Dose: Not Given Glucagon (Glucagen Diagnostic Kit) 0 mg IM STAT PRN; Protocol PRN Reason: Hypoglycemia Protocol Hydrochlorothiazide (Microzide) 12.5 mg PO DAILY [facility] Last Admin: 04/10/18 11:00 Dose: 12.5 mg Dextrose (Dextrose 5% In Water 1000 Ml) 1,000 mls @ 0 mls/hr IV .Q0M PRN; Protocol PRN Reason: Hypoglycemia Protocol Sodium Chloride (Sodium Chloride 0.9%) 1,000 mls @ 50 mls/hr IV .Q20H [facility] Stop: 04/11/18 10:29 Last Admin: 04/10/18 14:59 Dose: 50 mls/hr Insulin Aspart (Novolog) 0 unit SC [facility]; Protocol Last Admin: 04/10/18 16:58 Dose: Not Given Levetiracetam (Keppra) 500 mg PO BID [facility] Last Admin: 04/10/18 17:08 Dose: 500 mg Lisinopril (Zestril) 10 mg PO BID [facility] Last Admin: 04/10/18 17:07 Dose: 10 mg Memantine (Namenda) 10 mg PO DAILY [facility] Last Admin: 04/10/18 11:00 Dose: 10 mg Metformin HCl (Glucophage) 1,000 mg PO BID [facility] Last Admin: 04/10/18 17:08 Dose: 1,000 mg Rosuvastatin Calcium (Crestor) 40 mg PO HS [facility] Last Admin: 04/09/18 21:14 Dose: 40 mg - Labs Labs: 04/10/18 06:11 04/10/18 06:11 PT 11.5 SECONDS (9.7-12.2) 04/08/18 13:52 INR 1.1 04/08/18 13:52 APTT 32 SECONDS (21-34) 04/08/18 13:52
[2018-04-11] MEDS: (Novolog) Insulin Aspart, Recombinant 100 u/ml 10 ml vial SC SCH ×4 (07:45→21:14)
[2018-04-11 07:58] LABS: BASO # 0.1 K/uL (0.0-0.2); BASO % 0.5 % (0.0-2.0); EOS # 0.2 K/uL (0.0-0.7); HEMOGLOBIN 11.2 g/dL (11.0-16.0); LYMPH # 3.1 K/uL (1.0-4.3); MEAN PLATELET VOLUME 8.6 fL (7.2-11.7); RED CELL DISTRIBUTION WIDTH 13.1 % (11.5-14.5)
[2018-04-11 08:01] LABS: EOS % 1.3 % (0.0-4.0); MEAN CORPUSCULAR HGB CONC 34.1 g/dL (33.0-37.0); MONO % 6.8 % (0.0-10.0); NEUT # 10.5 K/uL (1.8-7.0); NEUT % 70.4 % (50.0-75.0); RBC 3.62 Mil/uL (3.80-5.20); WHITE BLOOD COUNT 14.9 K/uL (4.8-10.8)
[2018-04-11 08:34] LABS: ALB/GLOB RATIO 1.3 (1.0-2.1); ALT/SGPT 32 U/L (9-52); AST/SGOT 21 U/L (14-36); BLOOD UREA NITROGEN 10 mg/dL (7-17); GFR NON-AFRICAN AMERICAN > 60
[2018-04-11] MEDS: Enoxaparin 40 mg Syringe SC SCH (10:34)
[2018-04-11] MEDS: Aspirin 325 mg EC Tablets PO SCH (10:34)
[2018-04-11] MEDS ORDERED: Magnesium Sulfate 1 gm in D5W 1 GM/100 ML BAG IVPB ONE (11:30)
--- NOTE | 2018-04-11 15:25 | CP.PCM.PN ---
Subjective - Date & Time of Evaluation Date of Evaluation: 04/11/18 Time of Evaluation: 07:30 - Subjective Subjective: clinically same Objective - Vital Signs/Intake and Output Vital Signs (last 24 hours): Temp Pulse Resp BP Pulse Ox 98.1 F 69 20 128/68 94 L 04/11/18 07:27 04/11/18 12:00 04/11/18 07:27 04/11/18 07:27 04/11/18 07:27 Intake and Output: 04/11/18 04/11/18 06:59 18:59 Intake Total 650 Balance 650 - Medications Medications: Current Medications Amitriptyline HCl (Elavil) 10 mg PO HS [facility] Last Admin: 04/10/18 21:26 Dose: 10 mg Amlodipine Besylate (Norvasc) 10 mg PO DAILY [facility] Last Admin: 04/11/18 10:34 Dose: 10 mg Aspirin (Ecotrin) 325 mg PO DAILY [facility] Last Admin: 04/11/18 10:34 Dose: 325 mg Dextrose (Dextrose 50% Inj) 0 ml IV STAT PRN; Protocol PRN Reason: Hypoglycemia Protocol Dextrose (Glutose 15) 0 gm PO ONCE PRN; Protocol PRN Reason: Hypoglycemia Protocol Donepezil HCl (Aricept) 10 mg PO DAILY [facility] Last Admin: 04/11/18 10:33 Dose: 10 mg Enoxaparin Sodium (Lovenox) 40 mg SC DAILY [facility] Last Admin: 04/11/18 10:34 Dose: 40 mg Glimepiride (Amaryl) 2 mg PO BID [facility] Last Admin: 04/11/18 10:33 Dose: 2 mg Glucagon (Glucagen Diagnostic Kit) 0 mg IM STAT PRN; Protocol PRN Reason: Hypoglycemia Protocol Hydrochlorothiazide (Microzide) 12.5 mg PO DAILY [facility] Last Admin: 04/11/18 10:33 Dose: 12.5 mg Dextrose (Dextrose 5% In Water 1000 Ml) 1,000 mls @ 0 mls/hr IV .Q0M PRN; Protocol PRN Reason: Hypoglycemia Protocol Insulin Aspart (Novolog) 0 unit SC [facility]; Protocol Last Admin: 04/11/18 11:41 Dose: Not Given Levetiracetam (Keppra) 500 mg PO BID [facility] Last Admin: 04/11/18 10:33 Dose: 500 mg Lisinopril (Zestril) 10 mg PO BID [facility] Last Admin: 04/11/18 10:33 Dose: 10 mg Memantine (Namenda) 10 mg PO DAILY [facility] Last Admin: 04/11/18 10:33 Dose: 10 mg Metformin HCl (Glucophage) 1,000 mg PO BID [facility] Last Admin: 04/11/18 10:33 Dose: 1,000 mg Rosuvastatin Calcium (Crestor) 40 mg PO HS [facility] Last Admin: 04/10/18 21:26 Dose: 40 mg - Labs Labs: 04/11/18 07:00 04/11/18 07:40 PT 11.5 SECONDS (9.7-12.2) 04/08/18 13:52 INR 1.1 04/08/18 13:52 APTT 32 SECONDS (21-34) 04/08/18 13:52
[2018-04-11] MEDS: Magnesium Sulfate 1 gm in D5W 1 GM/100 ML BAG IVPB SCH ×2 (18:24→19:43)
[2018-04-12] MEDS: (Novolog) Insulin Aspart, Recombinant 100 u/ml 10 ml vial SC SCH ×4 (07:30→22:03)
[2018-04-12 07:35] LABS: BASO # 0.1 K/uL (0.0-0.2); BASO % 0.6 % (0.0-2.0); EOS # 0.1 K/uL (0.0-0.7); EOS % 1.2 % (0.0-4.0); HEMOGLOBIN 11.3 g/dL (11.0-16.0); LYMPH # 3.1 K/uL (1.0-4.3); LYMPH % 26.7 % (20.0-40.0); MEAN CELL VOLUME 90.4 fL (81.0-99.0); MEAN CORPUSCULAR HGB CONC 34.3 g/dL (33.0-37.0); MEAN PLATELET VOLUME 9.1 fL (7.2-11.7); MONO # 0.9 K/uL (0.0-0.8); MONO % 7.8 % (0.0-10.0); NEUT # 7.5 K/uL (1.8-7.0); NEUT % 63.7 % (50.0-75.0); NRBC % 0.1 % (0.0-2.0); RBC 3.65 Mil/uL (3.80-5.20); RED CELL DISTRIBUTION WIDTH 13.1 % (11.5-14.5); WHITE BLOOD COUNT 11.8 K/uL (4.8-10.8)
[2018-04-12 07:37] LABS: ALB/GLOB RATIO 1.3 (1.0-2.1); ALBUMIN 3.3 g/dL (3.5-5.0); ALT/SGPT 33 U/L (9-52); AST/SGOT 16 U/L (14-36); BLOOD UREA NITROGEN 10 mg/dL (7-17); CALCIUM 8.7 mg/dl (8.6-10.4); GFR NON-AFRICAN AMERICAN > 60
[2018-04-12] MEDS: Aspirin 325 mg EC Tablets PO SCH (09:49)
[2018-04-12] MEDS: Enoxaparin 40 mg Syringe SC SCH (09:49)
--- NOTE | 2018-04-12 12:28 | CP.PCM.PN ---
Subjective - Date & Time of Evaluation Date of Evaluation: 04/12/18 Time of Evaluation: 07:45 - Subjective Subjective: clinically same Objective - Vital Signs/Intake and Output Vital Signs (last 24 hours): Temp Pulse Resp BP Pulse Ox 98 F 69 20 118/65 96 04/12/18 11:17 04/12/18 11:17 04/12/18 11:17 04/12/18 11:17 04/12/18 11:17 - Medications Medications: Current Medications Amitriptyline HCl (Elavil) 10 mg PO [facility] Last Admin: 04/11/18 21:32 Dose: 10 mg Amlodipine Besylate (Norvasc) 10 mg PO DAILY [facility] Last Admin: 04/12/18 09:49 Dose: 10 mg Aspirin (Ecotrin) 325 mg PO DAILY [facility] Last Admin: 04/12/18 09:49 Dose: 325 mg Dextrose (Dextrose 50% Inj) 0 ml IV STAT PRN; Protocol PRN Reason: Hypoglycemia Protocol Dextrose (Glutose 15) 0 gm PO ONCE PRN; Protocol PRN Reason: Hypoglycemia Protocol Donepezil HCl (Aricept) 10 mg PO DAILY [facility] Last Admin: 04/12/18 09:49 Dose: 10 mg Enoxaparin Sodium (Lovenox) 40 mg SC DAILY [facility] Last Admin: 04/12/18 09:49 Dose: 40 mg Glimepiride (Amaryl) 2 mg PO BID [facility] Last Admin: 04/12/18 09:49 Dose: 2 mg Glucagon (Glucagen Diagnostic Kit) 0 mg IM STAT PRN; Protocol PRN Reason: Hypoglycemia Protocol Insulin Aspart (Novolog) 0 unit SC [facility]; Protocol Last Admin: 04/12/18 07:30 Dose: Not Given Levetiracetam (Keppra) 500 mg PO BID [facility] Last Admin: 04/12/18 09:49 Dose: 500 mg Lisinopril (Zestril) 10 mg PO BID [facility] Last Admin: 04/12/18 09:49 Dose: 10 mg Memantine (Namenda) 10 mg PO DAILY [facility] Last Admin: 04/12/18 09:49 Dose: 10 mg Metformin HCl (Glucophage) 1,000 mg PO BID [facility] Last Admin: 04/12/18 09:49 Dose: 1,000 mg Metoprolol Tartrate (Lopressor) 50 mg PO Q6H [facility] Rosuvastatin Calcium (Crestor) 40 mg PO HS [facility] Last Admin: 04/11/18 21:32 Dose: 40 mg - Labs Labs: 04/12/18 06:58 04/12/18 06:58 PT 11.5 SECONDS (9.7-12.2) 04/08/18 13:52 INR 1.1 04/08/18 13:52 APTT 32 SECONDS (21-34) 04/08/18 13:52 - Constitutional Appears: Well - Head Exam Head Exam: ATRAUMATIC, NORMAL INSPECTION, NORMOCEPHALIC - Eye Exam Eye Exam: EOMI, Normal appearance, PERRL Pupil Exam: NORMAL ACCOMODATION, PERRL - ENT Exam ENT Exam: Mucous Membranes Moist, Normal Exam - Neck Exam Neck Exam: Full ROM, Normal Inspection. absent: Lymphadenopathy - Respiratory Exam Respiratory Exam: Decreased Breath Sounds - Cardiovascular Exam Cardiovascular Exam: REGULAR RHYTHM, +S1, +S2 - GI/Abdominal Exam GI & Abdominal Exam: Soft, Diminished Bowel Sounds - Rectal Exam Rectal Exam: Deferred
[2018-04-12] MEDS: Magnesium Sulfate 1 gm in D5W 1 GM/100 ML BAG IVPB SCH ×4 (13:57→22:03)
--- NOTE | 2018-04-12 14:57 | CP.PCM.PN ---
Subjective - Date & Time of Evaluation Date of Evaluation: 04/12/18 Time of Evaluation: 14:54 - Subjective Subjective: Events reviewed. Wide complex tachycardia without hemodynamic compromise. Telemetry is reviewed by myself consistent with Sustained Vtach with evidence of AV dissociation; fusion and capture beats are noted. Beta deep was initi ated and now rhythm arrhythmia is suppressed. Objective - Vital Signs/Intake and Output Vital Signs (last 24 hours): Temp Pulse Resp BP Pulse Ox 98 F 69 20 118/65 96 04/12/18 11:17 04/12/18 11:17 04/12/18 11:17 04/12/18 11:17 04/12/18 11:17 - Medications Medications: Current Medications Amitriptyline HCl (Elavil) 10 mg PO HS [facility] Last Admin: 04/11/18 21:32 Dose: 10 mg Amlodipine Besylate (Norvasc) 10 mg PO DAILY [facility] Last Admin: 04/12/18 09:49 Dose: 10 mg Aspirin (Ecotrin) 325 mg PO DAILY [facility] Last Admin: 04/12/18 09:49 Dose: 325 mg Dextrose (Dextrose 50% Inj) 0 ml IV STAT PRN; Protocol PRN Reason: Hypoglycemia Protocol Dextrose (Glutose 15) 0 gm PO ONCE PRN; Protocol PRN Reason: Hypoglycemia Protocol Donepezil HCl (Aricept) 10 mg PO DAILY [facility] Last Admin: 04/12/18 09:49 Dose: 10 mg Enoxaparin Sodium (Lovenox) 40 mg SC DAILY [facility] Last Admin: 04/12/18 09:49 Dose: 40 mg Glimepiride (Amaryl) 2 mg PO BID [facility] Last Admin: 04/12/18 09:49 Dose: 2 mg Glucagon (Glucagen Diagnostic Kit) 0 mg IM STAT PRN; Protocol PRN Reason: Hypoglycemia Protocol Insulin Aspart (Novolog) 0 unit SC [facility]; Protocol Last Admin: 04/12/18 12:54 Dose: Not Given Levetiracetam (Keppra) 500 mg PO BID [facility] Last Admin: 04/12/18 09:49 Dose: 500 mg Lisinopril (Zestril) 10 mg PO BID [facility] Last Admin: 04/12/18 09:49 Dose: 10 mg Memantine (Namenda) 10 mg PO DAILY [facility] Last Admin: 04/12/18 09:49 Dose: 10 mg Metformin HCl (Glucophage) 1,000 mg PO BID [facility] Last Admin: 04/12/18 09:49 Dose: 1,000 mg Metoprolol Tartrate (Lopressor) 50 mg PO Q6H [facility] Rosuvastatin Calcium (Crestor) 40 mg PO HS [facility] Last Admin: 04/11/18 21:32 Dose: 40 mg - Labs Labs: 04/12/18 06:58 04/12/18 06:58 PT 11.5 SECONDS (9.7-12.2) 04/08/18 13:52 INR 1.1 04/08/18 13:52 APTT 32 SECONDS (21-34) 04/08/18 13:52 - Constitutional Appears: Well, Chronically Ill - Head Exam Head Exam: ATRAUMATIC, NORMAL INSPECTION - Eye Exam Eye Exam: PERRL, Scleral icterus - ENT Exam ENT Exam: Mucous Membranes Dry Additional comments: poor dentition - Neck Exam Neck Exam: Full ROM. absent: Lymphadenopathy, Thyromegaly - Respiratory Exam Respiratory Exam: Clear to Ausculation Bilateral, NORMAL BREATHING PATTERN - Cardiovascular Exam Cardiovascular Exam: REGULAR RHYTHM, RRR, +S1, +S2. absent: JVD - GI/Abdominal Exam GI & Abdominal Exam: Normal Bowel Sounds. absent: Organomegaly Assessment and Plan - Assessment and Plan (Free Text) Assessment: 77 y/o woman with chronic CVA and reduced functional status due to R. 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
[2018-04-13] MEDS: (Novolog) Insulin Aspart, Recombinant 100 u/ml 10 ml vial SC SCH ×4 (07:11→22:10)
--- NOTE | 2018-04-13 08:57 | CP.PCM.PN ---
Subjective - Date & Time of Evaluation Date of Evaluation: 04/13/18 Time of Evaluation: 08:56 - Subjective Subjective: Events reviewed Objective - Vital Signs/Intake and Output Vital Signs (last 24 hours): Temp Pulse Resp BP Pulse Ox 98.2 F 58 L 20 120/54 L 95 04/13/18 07:00 04/13/18 08:00 04/13/18 07:00 04/13/18 07:00 04/13/18 07:00 Intake and Output: 04/13/18 04/13/18 06:59 18:59 Intake Total Balance - Medications Medications: Current Medications Amitriptyline HCl (Elavil) 10 mg PO HS [facility] Last Admin: 04/12/18 22:02 Dose: 10 mg Amlodipine Besylate (Norvasc) 10 mg PO DAILY [facility] Last Admin: 04/12/18 09:49 Dose: 10 mg Aspirin (Ecotrin) 325 mg PO DAILY [facility] Last Admin: 04/12/18 09:49 Dose: 325 mg Dextrose (Dextrose 50% Inj) 0 ml IV STAT PRN; Protocol PRN Reason: Hypoglycemia Protocol Dextrose (Glutose 15) 0 gm PO ONCE PRN; Protocol PRN Reason: Hypoglycemia Protocol Donepezil HCl (Aricept) 10 mg PO DAILY [facility] Last Admin: 04/12/18 09:49 Dose: 10 mg Enoxaparin Sodium (Lovenox) 40 mg SC DAILY [facility] Last Admin: 04/12/18 09:49 Dose: 40 mg Glimepiride (Amaryl) 2 mg PO BID [facility] Last Admin: 04/12/18 18:23 Dose: Not Given Glucagon (Glucagen Diagnostic Kit) 0 mg IM STAT PRN; Protocol PRN Reason: Hypoglycemia Protocol Insulin Aspart (Novolog) 0 unit SC [facility]; Protocol Last Admin: 04/13/18 07:11 Dose: Not Given Levetiracetam (Keppra) 500 mg PO BID [facility] Last Admin: 04/12/18 18:17 Dose: 500 mg Lisinopril (Zestril) 10 mg PO BID [facility] Last Admin: 04/12/18 18:17 Dose: 10 mg Memantine (Namenda) 10 mg PO DAILY [facility] Last Admin: 04/12/18 09:49 Dose: 10 mg Metformin HCl (Glucophage) 1,000 mg PO BID [facility] Last Admin: 04/12/18 18:24 Dose: Not Given Metoprolol Tartrate (Lopressor) 50 mg PO Q6H [facility] Last Admin: 04/13/18 03:02 Dose: 50 mg Rosuvastatin Calcium (Crestor) 40 mg PO HS [facility] Last Admin: 04/12/18 22:02 Dose: 40 mg - Labs Labs: 04/12/18 06:58 04/12/18 06:58 PT 11.5 SECONDS (9.7-12.2) 04/08/18 13:52 INR 1.1 04/08/18 13:52 APTT 32 SECONDS (21-34) 04/08/18 13:52 Assessment and Plan - Assessment and Plan (Free Text) Assessment: - Constitutional Appears: Well, Chronically Ill - Head Exam Head Exam: ATRAUMATIC, NORMAL INSPECTION - Eye Exam Eye Exam: PERRL, Scleral icterus - ENT Exam ENT Exam: Mucous Membranes Dry Additional comments: poor dentition - Neck Exam Neck Exam: Full ROM. absent: Lymphadenopathy, Thyromegaly - Respiratory Exam Respiratory Exam: Clear to Ausculation Bilateral, NORMAL BREATHING PATTERN - Cardiovascular Exam Cardiovascular Exam: REGULAR RHYTHM, RRR, +S1, +S2. absent: JVD - GI/Abdominal Exam GI & Abdominal Exam: Normal Bowel Sounds. absent: Organomegaly Assessment and Plan - Assessment and Plan (Free Text) Assessment: 77 y/o woman with chronic CVA and reduced functional status due to R. 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
[2018-04-13] MEDS: Aspirin 325 mg EC Tablets PO SCH (10:21)
[2018-04-13] MEDS: Enoxaparin 40 mg Syringe SC SCH (10:22)
[2018-04-13] MEDS: Magnesium Sulfate 1 gm in D5W 1 GM/100 ML BAG IVPB SCH ×2 (12:20→13:42)
--- NOTE | 2018-04-13 12:48 | CP.PCM.PN ---
Subjective - Date & Time of Evaluation Date of Evaluation: 04/13/18 Time of Evaluation: 08:15 - Subjective Subjective: clinically same Objective - Vital Signs/Intake and Output Vital Signs (last 24 hours): Temp Pulse Resp BP Pulse Ox 98 F 61 20 131/70 96 04/13/18 10:19 04/13/18 10:19 04/13/18 10:19 04/13/18 10:19 04/13/18 10:19 Intake and Output: 04/13/18 04/13/18 06:59 18:59 Intake Total Balance - Medications Medications: Current Medications Amitriptyline HCl (Elavil) 10 mg PO HS [facility] Last Admin: 04/12/18 22:02 Dose: 10 mg Amlodipine Besylate (Norvasc) 10 mg PO DAILY [facility] Last Admin: 04/13/18 12:36 Dose: Not Given Aspirin (Ecotrin) 325 mg PO DAILY [facility] Last Admin: 04/13/18 10:21 Dose: 325 mg Dextrose (Dextrose 50% Inj) 0 ml IV STAT PRN; Protocol PRN Reason: Hypoglycemia Protocol Dextrose (Glutose 15) 0 gm PO ONCE PRN; Protocol PRN Reason: Hypoglycemia Protocol Donepezil HCl (Aricept) 10 mg PO DAILY [facility] Last Admin: 04/13/18 10:21 Dose: 10 mg Enoxaparin Sodium (Lovenox) 40 mg SC DAILY [facility] Last Admin: 04/13/18 10:22 Dose: 40 mg Glimepiride (Amaryl) 2 mg PO BID [facility] Last Admin: 04/13/18 10:21 Dose: 2 mg Glucagon (Glucagen Diagnostic Kit) 0 mg IM STAT PRN; Protocol PRN Reason: Hypoglycemia Protocol Magnesium Sulfate/Dextrose (Magnesium Sulfate 1 Gm/100 Ml D5w) 1 gm in 100 mls @ 300 mls/hr IVPB Q1H [facility] Stop: 04/13/18 13:34 Last Admin: 04/13/18 12:20 Dose: 300 mls/hr Insulin Aspart (Novolog) 0 unit SC [facility]; Protocol Last Admin: 04/13/18 12:21 Dose: 1 unit Levetiracetam (Keppra) 500 mg PO BID [facility] Last Admin: 04/13/18 10:21 Dose: 500 mg Lisinopril (Zestril) 10 mg PO BID [facility] Last Admin: 04/13/18 10:21 Dose: 10 mg Memantine (Namenda) 10 mg PO DAILY [facility] Last Admin: 04/13/18 10:21 Dose: 10 mg Metformin HCl (Glucophage) 1,000 mg PO BID [facility] Last Admin: 04/13/18 10:20 Dose: 1,000 mg Metoprolol Tartrate (Lopressor) 50 mg PO Q6H [facility] Last Admin: 04/13/18 10:21 Dose: 50 mg Rosuvastatin Calcium (Crestor) 40 mg PO HS [facility] Last Admin: 04/12/18 22:02 Dose: 40 mg - Labs Labs: 04/12/18 06:58 04/12/18 06:58 PT 11.5 SECONDS (9.7-12.2) 04/08/18 13:52 INR 1.1 04/08/18 13:52 APTT 32 SECONDS (21-34) 04/08/18 13:52 - Constitutional Appears: Well - Head Exam Head Exam: ATRAUMATIC, NORMAL INSPECTION, NORMOCEPHALIC - Eye Exam Eye Exam: EOMI, Normal appearance, PERRL Pupil Exam: NORMAL ACCOMODATION, PERRL - ENT Exam ENT Exam: Mucous Membranes Moist, Normal Exam - Neck Exam Neck Exam: Full ROM, Normal Inspection. absent: Lymphadenopathy - Respiratory Exam Respiratory Exam: Decreased Breath Sounds - Cardiovascular Exam Cardiovascular Exam: REGULAR RHYTHM, +S1, +S2 - GI/Abdominal Exam GI & Abdominal Exam: Soft, Diminished Bowel Sounds - Rectal Exam Rectal Exam: Deferred
[2018-04-14 07:41] LABS: BASO # 0.1 K/uL (0.0-0.2); BASO % 0.7 % (0.0-2.0); EOS # 0.2 K/uL (0.0-0.7); EOS % 2.2 % (0.0-4.0); HEMOGLOBIN 11.3 g/dL (11.0-16.0); LYMPH # 2.9 K/uL (1.0-4.3); MEAN CELL VOLUME 90.4 fL (81.0-99.0); MEAN CORPUSCULAR HEMOGLOBIN 30.9 pg (27.0-31.0); MEAN CORPUSCULAR HGB CONC 34.2 g/dL (33.0-37.0); MEAN PLATELET VOLUME 8.7 fL (7.2-11.7); MONO # 0.9 K/uL (0.0-0.8); MONO % 8.8 % (0.0-10.0); NEUT # 5.7 K/uL (1.8-7.0); NEUT % 58.3 % (50.0-75.0); NRBC % 0.1 % (0.0-2.0); RBC 3.68 Mil/uL (3.80-5.20); RED CELL DISTRIBUTION WIDTH 13.2 % (11.5-14.5); WHITE BLOOD COUNT 9.7 K/uL (4.8-10.8)
[2018-04-14] MEDS: (Novolog) Insulin Aspart, Recombinant 100 u/ml 10 ml vial SC SCH ×4 (07:54→21:13)
[2018-04-14 08:41] LABS: ALB/GLOB RATIO 1.3 (1.0-2.1); ALBUMIN 3.4 g/dL (3.5-5.0); ALT/SGPT 39 U/L (9-52); AST/SGOT 27 U/L (14-36); BLOOD UREA NITROGEN 9 mg/dL (7-17); CALCIUM 8.8 mg/dl (8.6-10.4); GFR NON-AFRICAN AMERICAN > 60
[2018-04-14] MEDS: Aspirin 325 mg EC Tablets PO SCH (10:19)
[2018-04-14] MEDS: Enoxaparin 40 mg Syringe SC SCH (10:21)
[2018-04-14] MEDS ORDERED: Magnesium Sulfate 1 gm in D5W 1 GM/100 ML BAG IVPB ONE ×3 (12:00→13:42)
--- NOTE | 2018-04-14 12:14 | CARD ---
APPROVED REPORT Date of service: 04/11/2018 EKG Measurement Heart [id number] <Conclusion> Normal sinus rhythm Normal ECG
[2018-04-14] MEDS ORDERED: Magnesium Sulfate 1 gm in D5W 1 GM/100 ML BAG IVPB SCH (13:45)
--- NOTE | 2018-04-14 14:37 | CP.PCM.PN ---
Subjective - Date & Time of Evaluation Date of Evaluation: 04/14/18 Time of Evaluation: 08:15 - Subjective Subjective: clinically same Objective - Vital Signs/Intake and Output Vital Signs (last 24 hours): Temp Pulse Resp BP Pulse Ox 97.7 F 52 L 20 111/64 96 04/14/18 08:42 04/14/18 10:17 04/14/18 08:42 04/14/18 10:17 04/14/18 08:42 - Medications Medications: Current Medications Amitriptyline HCl (Elavil) 10 mg PO [facility] Last Admin: 04/13/18 22:41 Dose: 10 mg Amlodipine Besylate (Norvasc) 10 mg PO DAILY [facility] Last Admin: 04/14/18 10:20 Dose: 10 mg Aspirin (Ecotrin) 325 mg PO DAILY [facility] Last Admin: 04/14/18 10:19 Dose: 325 mg Ciprofloxacin (Cipro) 500 mg PO BID [facility]; Protocol Last Admin: 04/14/18 10:20 Dose: 500 mg Dextrose (Dextrose 50% Inj) 0 ml IV STAT PRN; Protocol PRN Reason: Hypoglycemia Protocol Dextrose (Glutose 15) 0 gm PO ONCE PRN; Protocol PRN Reason: Hypoglycemia Protocol Donepezil HCl (Aricept) 10 mg PO DAILY [facility] Last Admin: 04/14/18 10:19 Dose: 10 mg Enoxaparin Sodium (Lovenox) 40 mg SC DAILY [facility] Last Admin: 04/14/18 10:21 Dose: 40 mg Glimepiride (Amaryl) 2 mg PO BID [facility] Last Admin: 04/14/18 10:19 Dose: 2 mg Glucagon (Glucagen Diagnostic Kit) 0 mg IM STAT PRN; Protocol PRN Reason: Hypoglycemia Protocol Magnesium Sulfate/Dextrose (Magnesium Sulfate 1 Gm/100 Ml D5w) 1 gm in 100 mls @ 100 mls/hr IVPB ONCE ONE Stop: 04/14/18 14:41 Last Admin: 04/14/18 14:15 Dose: 100 mls/hr Insulin Aspart (Novolog) 0 unit SC [facility]; Protocol Last Admin: 04/14/18 12:58 Dose: 2 unit Levetiracetam (Keppra) 500 mg PO BID [facility] Last Admin: 04/14/18 10:21 Dose: 500 mg Lisinopril (Zestril) 10 mg PO BID [facility] Last Admin: 04/14/18 10:19 Dose: 10 mg Memantine (Namenda) 10 mg PO DAILY [facility] Last Admin: 04/14/18 10:20 Dose: 10 mg Metformin HCl (Glucophage) 1,000 mg PO BID [facility] Last Admin: 04/14/18 10:21 Dose: 1,000 mg Metoprolol Tartrate (Lopressor) 50 mg PO Q6H [facility] Last Admin: 04/14/18 14:30 Dose: 50 mg Rosuvastatin Calcium (Crestor) 40 mg PO HS [facility] Last Admin: 04/13/18 22:09 Dose: 40 mg - Labs Labs: 04/14/18 07:22 04/14/18 07:22 PT 11.5 SECONDS (9.7-12.2) 04/08/18 13:52 INR 1.1 04/08/18 13:52 APTT 32 SECONDS (21-34) 04/08/18 13:52
--- NOTE | 2018-04-14 23:58 | CP.PCM.PN ---
Subjective - Date & Time of Evaluation Date of Evaluation: 04/14/18 Time of Evaluation: 07:00 - Subjective Subjective: Events reviewed Objective - Vital Signs/Intake and Output Vital Signs (last 24 hours): Temp Pulse Resp BP Pulse Ox 98.2 F 64 20 146/74 99 04/14/18 15:00 04/14/18 21:56 04/14/18 15:00 04/14/18 21:56 04/14/18 15:14 - Medications Medications: Current Medications Amitriptyline HCl (Elavil) [address] [facility] Last Admin: 04/14/18 21:53 Dose: 10 mg Amlodipine Besylate (Norvasc) 10 mg PO DAILY [facility] Last Admin: 04/14/18 10:20 Dose: 10 mg Aspirin (Ecotrin) 325 mg PO DAILY [facility] Last Admin: 04/14/18 10:19 Dose: 325 mg Ciprofloxacin (Cipro) 500 mg PO BID [facility]; Protocol Last Admin: 04/14/18 17:57 Dose: 500 mg Dextrose (Dextrose 50% Inj) 0 ml IV STAT PRN; Protocol PRN Reason: Hypoglycemia Protocol Dextrose (Glutose 15) 0 gm PO ONCE PRN; Protocol PRN Reason: Hypoglycemia Protocol Donepezil HCl (Aricept) 10 mg PO DAILY [facility] Last Admin: 04/14/18 10:19 Dose: 10 mg Enoxaparin Sodium (Lovenox) 40 mg SC DAILY [facility] Last Admin: 04/14/18 10:21 Dose: 40 mg Glimepiride (Amaryl) 2 mg PO BID [facility] Last Admin: 04/14/18 17:56 Dose: 2 mg Glucagon (Glucagen Diagnostic Kit) 0 mg IM STAT PRN; Protocol PRN Reason: Hypoglycemia Protocol Insulin Aspart (Novolog) 0 unit SC [facility]; Protocol Last Admin: 04/14/18 21:13 Dose: Not Given Levetiracetam (Keppra) 500 mg PO BID [facility] Last Admin: 04/14/18 17:56 Dose: 500 mg Lisinopril (Zestril) 10 mg PO BID [facility] Last Admin: 04/14/18 17:57 Dose: 10 mg Memantine (Namenda) 10 mg PO DAILY [facility] Last Admin: 04/14/18 10:20 Dose: 10 mg Metformin HCl (Glucophage) 1,000 mg PO BID [facility] Last Admin: 04/14/18 17:56 Dose: 1,000 mg Metoprolol Tartrate (Lopressor) 50 mg PO Q6H [facility] Last Admin: 04/14/18 21:53 Dose: 50 mg Rosuvastatin Calcium (Crestor) 40 mg PO HS [facility] Last Admin: 04/14/18 21:53 Dose: 40 mg - Labs Labs: 04/14/18 07:22 04/14/18 07:22 PT 11.5 SECONDS (9.7-12.2) 04/08/18 13:52 INR 1.1 04/08/18 13:52 APTT 32 SECONDS (21-34) 04/08/18 13:52 Assessment and Plan - Assessment and Plan (Free Text) Assessment: - Constitutional Appears: Well, Chronically Ill - Head Exam Head Exam: ATRAUMATIC, NORMAL INSPECTION - Eye Exam Eye Exam: PERRL, Scleral icterus - ENT Exam ENT Exam: Mucous Membranes Dry Additional comments: poor dentition - Neck Exam Neck Exam: Full ROM. absent: Lymphadenopathy, Thyromegaly - Respiratory Exam Respiratory Exam: Clear to Ausculation Bilateral, NORMAL BREATHING PATTERN - Cardiovascular Exam Cardiovascular Exam: REGULAR RHYTHM, RRR, +S1, +S2. absent: JVD - GI/Abdominal Exam GI & Abdominal Exam: Normal Bowel Sounds. absent: Organomegaly Assessment and Plan - Assessment and Plan (Free Text) Assessment: 77 y/o woman with chronic CVA and reduced functional status due to R. 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
[2018-04-15 07:57] LABS: BASO # 0.1 K/uL (0.0-0.2); BASO % 0.7 % (0.0-2.0); EOS # 0.2 K/uL (0.0-0.7); EOS % 2.4 % (0.0-4.0); HEMOGLOBIN 11.3 g/dL (11.0-16.0); LYMPH # 2.3 K/uL (1.0-4.3); LYMPH % 23.1 % (20.0-40.0); MEAN CELL VOLUME 90.7 fL (81.0-99.0); MEAN CORPUSCULAR HEMOGLOBIN 31.5 pg (27.0-31.0); MEAN CORPUSCULAR HGB CONC 34.8 g/dL (33.0-37.0); MONO # 0.8 K/uL (0.0-0.8); NEUT # 6.5 K/uL (1.8-7.0); NEUT % 65.8 % (50.0-75.0); RBC 3.57 Mil/uL (3.80-5.20); RED CELL DISTRIBUTION WIDTH 13.2 % (11.5-14.5); WHITE BLOOD COUNT 9.9 K/uL (4.8-10.8)
[2018-04-15] MEDS: (Novolog) Insulin Aspart, Recombinant 100 u/ml 10 ml vial SC SCH ×4 (07:57→22:24)
[2018-04-15 08:19] LABS: ALB/GLOB RATIO 1.3 (1.0-2.1); ALBUMIN 3.4 g/dL (3.5-5.0); ALT/SGPT 34 U/L (9-52); AST/SGOT 31 U/L (14-36); BLOOD UREA NITROGEN 8 mg/dL (7-17); CALCIUM 8.9 mg/dl (8.6-10.4); GFR NON-AFRICAN AMERICAN > 60
[2018-04-15] MEDS: Enoxaparin 40 mg Syringe SC SCH (10:56)
[2018-04-15] MEDS: Aspirin 325 mg EC Tablets PO SCH (10:58)
[2018-04-15] MEDS: Magnesium Sulfate 1 gm in D5W 1 GM/100 ML BAG IVPB SCH ×2 (13:00→13:57)
--- NOTE | 2018-04-15 13:49 | CP.PCM.PN ---
Subjective - Date & Time of Evaluation Date of Evaluation: 04/15/18 Time of Evaluation: 13:48 - Subjective Subjective: Events reviewed. Receiving IV magnesium Objective - Vital Signs/Intake and Output Vital Signs (last 24 hours): Temp Pulse Resp BP Pulse Ox 97.9 F 55 L 20 137/66 97 04/15/18 07:00 04/15/18 07:00 04/15/18 07:00 04/15/18 07:00 04/15/18 07:00 - Medications Medications: Current Medications Amitriptyline HCl (Elavil) 10 mg PO HS [facility] Last Admin: 04/14/18 21:53 Dose: 10 mg Amlodipine Besylate (Norvasc) 10 mg PO DAILY [facility] Last Admin: 04/15/18 10:56 Dose: 10 mg Aspirin (Ecotrin) 325 mg PO DAILY [facility] Last Admin: 04/15/18 10:58 Dose: 325 mg Ciprofloxacin (Cipro) 500 mg PO BID [facility]; Protocol Stop: 04/21/18 10:01 Last Admin: 04/15/18 10:58 Dose: 500 mg Dextrose (Dextrose 50% Inj) 0 ml IV STAT PRN; Protocol PRN Reason: Hypoglycemia Protocol Dextrose (Glutose 15) 0 gm PO ONCE PRN; Protocol PRN Reason: Hypoglycemia Protocol Donepezil HCl (Aricept) 10 mg PO DAILY [facility] Last Admin: 04/15/18 10:58 Dose: 10 mg Enoxaparin Sodium (Lovenox) 40 mg SC DAILY [facility] Last Admin: 04/15/18 10:56 Dose: 40 mg Glimepiride (Amaryl) 2 mg PO BID [facility] Last Admin: 04/15/18 10:57 Dose: 2 mg Glucagon (Glucagen Diagnostic Kit) 0 mg IM STAT PRN; Protocol PRN Reason: Hypoglycemia Protocol Magnesium Sulfate/Dextrose (Magnesium Sulfate 1 Gm/100 Ml D5w) 1 gm in 100 mls @ 200 mls/hr IVPB Q30M [facility] Stop: 04/15/18 13:59 Last Admin: 04/15/18 13:00 Dose: 200 mls/hr Insulin Aspart (Novolog) 0 unit SC [facility]; Protocol Last Admin: 04/15/18 12:59 Dose: 1 unit Levetiracetam (Keppra) 500 mg PO BID [facility] Last Admin: 04/15/18 10:57 Dose: 500 mg Lisinopril (Zestril) 10 mg PO BID [facility] Last Admin: 04/15/18 10:58 Dose: 10 mg Memantine (Namenda) 10 mg PO DAILY [facility] Last Admin: 04/15/18 10:58 Dose: 10 mg Metformin HCl (Glucophage) 1,000 mg PO BID [facility] Last Admin: 04/15/18 10:56 Dose: 1,000 mg Metoprolol Tartrate (Lopressor) 50 mg PO Q6H [facility] Last Admin: 04/15/18 10:56 Dose: 50 mg Rosuvastatin Calcium (Crestor) 40 mg PO HS [facility] Last Admin: 04/14/18 21:53 Dose: 40 mg - Labs Labs: 04/15/18 07:46 04/15/18 07:46 PT 11.5 SECONDS (9.7-12.2) 04/08/18 13:52 INR 1.1 04/08/18 13:52 APTT 32 SECONDS (21-34) 04/08/18 13:52 Assessment and Plan - Assessment and Plan (Free Text) Assessment: Constitutional Appears: Well, Chronically Ill - Head Exam Head Exam: ATRAUMATIC, NORMAL INSPECTION - Eye Exam Eye Exam: PERRL, Scleral icterus - ENT Exam ENT Exam: Mucous Membranes Dry Additional comments: poor dentition - Neck Exam Neck Exam: Full ROM. absent: Lymphadenopathy, Thyromegaly - Respiratory Exam Respiratory Exam: Clear to Ausculation Bilateral, NORMAL BREATHING PATTERN - Cardiovascular Exam Cardiovascular Exam: REGULAR RHYTHM, RRR, +S1, +S2. absent: JVD - GI/Abdominal Exam GI & Abdominal Exam: Normal Bowel Sounds. absent: Organomegaly Assessment and Plan - Assessment and Plan (Free Text) Assessment: 77 y/o woman with chronic CVA and reduced functional status due to R. 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
--- NOTE | 2018-04-15 21:16 | CP.PCM.PN ---
Subjective - Date & Time of Evaluation Date of Evaluation: 04/15/18 Time of Evaluation: 08:15 - Subjective Subjective: clinically same Objective - Vital Signs/Intake and Output Vital Signs (last 24 hours): Temp Pulse Resp BP Pulse Ox 98.5 F 55 L 20 120/64 97 04/15/18 15:00 04/15/18 15:50 04/15/18 15:00 04/15/18 15:00 04/15/18 15:00 - Medications Medications: Current Medications Amitriptyline HCl (Elavil) 10 mg PO [facility] Last Admin: 04/14/18 21:53 Dose: 10 mg Amlodipine Besylate (Norvasc) 10 mg PO DAILY [facility] Last Admin: 04/15/18 10:56 Dose: 10 mg Aspirin (Ecotrin) 325 mg PO DAILY [facility] Last Admin: 04/15/18 10:58 Dose: 325 mg Ciprofloxacin (Cipro) 500 mg PO BID [facility]; Protocol Stop: 04/21/18 10:01 Last Admin: 04/15/18 17:59 Dose: 500 mg Dextrose (Dextrose 50% Inj) 0 ml IV STAT PRN; Protocol PRN Reason: Hypoglycemia Protocol Dextrose (Glutose 15) 0 gm PO ONCE PRN; Protocol PRN Reason: Hypoglycemia Protocol Donepezil HCl (Aricept) 10 mg PO DAILY [facility] Last Admin: 04/15/18 10:58 Dose: 10 mg Enoxaparin Sodium (Lovenox) 40 mg SC DAILY [facility] Last Admin: 04/15/18 10:56 Dose: 40 mg Glimepiride (Amaryl) 2 mg PO BID [facility] Last Admin: 04/15/18 18:00 Dose: Not Given Glucagon (Glucagen Diagnostic Kit) 0 mg IM STAT PRN; Protocol PRN Reason: Hypoglycemia Protocol Insulin Aspart (Novolog) 0 unit SC [facility]; Protocol Last Admin: 04/15/18 18:00 Dose: Not Given Levetiracetam (Keppra) 500 mg PO BID [facility] Last Admin: 04/15/18 17:59 Dose: 500 mg Lisinopril (Zestril) 10 mg PO BID [facility] Last Admin: 04/15/18 17:59 Dose: 10 mg Memantine (Namenda) 10 mg PO DAILY [facility] Last Admin: 04/15/18 10:58 Dose: 10 mg Metformin HCl (Glucophage) 1,000 mg PO BID [facility] Last Admin: 04/15/18 17:59 Dose: 1,000 mg Metoprolol Tartrate (Lopressor) 50 mg PO Q6H [facility] Last Admin: 04/15/18 14:36 Dose: 50 mg Rosuvastatin Calcium (Crestor) 40 mg PO HS [facility] Last Admin: 04/14/18 21:53 Dose: 40 mg - Labs Labs: 04/15/18 07:46 04/15/18 07:46 PT 11.5 SECONDS (9.7-12.2) 04/08/18 13:52 INR 1.1 04/08/18 13:52 APTT 32 SECONDS (21-34) 04/08/18 13:52
[2018-04-16] MEDS: (Novolog) Insulin Aspart, Recombinant 100 u/ml 10 ml vial SC SCH ×3 (07:41→16:39)
[2018-04-16 08:17] VITALS: RESP 20
[2018-04-16] MEDS: Aspirin 325 mg EC Tablets PO SCH (09:31)
[2018-04-16] MEDS: Enoxaparin 40 mg Syringe SC SCH (09:31)
[2018-04-16 12:39] LABS: ALB/GLOB RATIO 1.4 (1.0-2.1); ALBUMIN 4.2 g/dL (3.5-5.0); ALT/SGPT 62 U/L (9-52); AST/SGOT 70 U/L (14-36); BLOOD UREA NITROGEN 8 mg/dL (7-17); CALCIUM 9.6 mg/dl (8.6-10.4); GFR NON-AFRICAN AMERICAN > 60
[2018-04-16] MEDS ORDERED: Magnesium Sulfate 1 gm in D5W 1 GM/100 ML BAG IVPB ONE ×2 (14:33→18:00)
--- NOTE | 2018-04-16 16:33 | CP.PCM.PN ---
Subjective - Date & Time of Evaluation Date of Evaluation: 04/16/18 Time of Evaluation: 07:30 - Subjective Subjective: clinically same Objective - Vital Signs/Intake and Output Vital Signs (last 24 hours): Temp Pulse Resp BP Pulse Ox 98.2 F 60 20 126/66 96 04/16/18 15:00 04/16/18 16:00 04/16/18 15:00 04/16/18 15:00 04/16/18 15:00 - Medications Medications: Current Medications Amitriptyline HCl (Elavil) 10 mg PO [facility] Last Admin: 04/15/18 22:24 Dose: 10 mg Amlodipine Besylate (Norvasc) 10 mg PO DAILY [facility] Last Admin: 04/16/18 09:31 Dose: 10 mg Aspirin (Ecotrin) 325 mg PO DAILY [facility] Last Admin: 04/16/18 09:31 Dose: 325 mg Ciprofloxacin (Cipro) 500 mg PO BID [facility]; Protocol Stop: 04/21/18 10:01 Last Admin: 04/16/18 09:31 Dose: 500 mg Dextrose (Dextrose 50% Inj) 0 ml IV STAT PRN; Protocol PRN Reason: Hypoglycemia Protocol Dextrose (Glutose 15) 0 gm PO ONCE PRN; Protocol PRN Reason: Hypoglycemia Protocol Donepezil HCl (Aricept) 10 mg PO [facility] Enoxaparin Sodium (Lovenox) 40 mg SC DAILY [facility] Last Admin: 04/16/18 09:31 Dose: 40 mg Glimepiride (Amaryl) 2 mg PO BID [facility] Last Admin: 04/16/18 09:31 Dose: 2 mg Glucagon (Glucagen Diagnostic Kit) 0 mg IM STAT PRN; Protocol PRN Reason: Hypoglycemia Protocol Magnesium Sulfate/Dextrose (Magnesium Sulfate 1 Gm/100 Ml D5w) 1 gm in 100 mls @ 100 mls/hr IVPB ONCE ONE Stop: 04/16/18 18:59 Influenza Virus Vaccine (Fluzone Quad [id number]) 60 mcg IM .ONCE ONE Stop: 04/17/18 10:01 Insulin Aspart (Novolog) 0 unit SC [facility]; Protocol Last Admin: 04/16/18 12:00 Dose: Not Given Levetiracetam (Keppra) 500 mg PO BID [facility] Last Admin: 04/16/18 09:31 Dose: 500 mg Lisinopril (Zestril) 10 mg PO BID [facility] Last Admin: 04/16/18 09:31 Dose: 10 mg Magnesium Oxide (Mag-Ox) 400 mg PO BID [facility] Memantine (Namenda) 10 mg PO DAILY [facility] Last Admin: 04/16/18 09:31 Dose: 10 mg Metformin HCl (Glucophage) 1,000 mg PO BID [facility] Last Admin: 04/16/18 09:31 Dose: 1,000 mg Metoprolol Succinate (Toprol Xl) 150 mg PO DAILY [facility] Rosuvastatin Calcium (Crestor) 40 mg PO HS [facility] Last Admin: 04/15/18 22:24 Dose: 40 mg - Labs Labs: 04/15/18 07:46 04/16/18 11:43 PT 11.5 SECONDS (9.7-12.2) 04/08/18 13:52 INR 1.1 04/08/18 13:52 APTT 32 SECONDS (21-34) 04/08/18 13:52 - Constitutional Appears: Well - Head Exam Head Exam: ATRAUMATIC, NORMAL INSPECTION, NORMOCEPHALIC - Eye Exam Eye Exam: EOMI, Normal appearance, PERRL Pupil Exam: NORMAL ACCOMODATION, PERRL - ENT Exam ENT Exam: Mucous Membranes Moist, Normal Exam - Neck Exam Neck Exam: Full ROM, Normal Inspection. absent: Lymphadenopathy - Respiratory Exam Respiratory Exam: Decreased Breath Sounds - Cardiovascular Exam Cardiovascular Exam: REGULAR RHYTHM, +S1, +S2 - GI/Abdominal Exam GI & Abdominal Exam: Soft, Diminished Bowel Sounds - Rectal Exam Rectal Exam: Deferred
[2018-04-16] MEDS: Magnesium Oxide 400 mg Tab UD PO SCH (18:48)
[2018-04-17 01:40] VITALS: O2SAT 95
[2018-04-17] MEDS: (Novolog) Insulin Aspart, Recombinant 100 u/ml 10 ml vial SC SCH ×3 (09:13→12:11)
[2018-04-17] MEDS: Magnesium Oxide 400 mg Tab UD PO SCH (09:58)
[2018-04-17] MEDS: Aspirin 325 mg EC Tablets PO SCH (09:58)
[2018-04-17] MEDS: Enoxaparin 40 mg Syringe SC SCH (09:58)
[2018-04-17] MEDS ORDERED: Influenza Vaccine 60 MCG/0.5 ML SYR (3 yr & up) IM ONE (10:00)
[2018-04-17] MEDS ORDERED: Metoprolol Succinate 50 mg XL Tab PO SCH (10:00)
[2018-04-17 11:49] LABS: HEMOGLOBIN 11.7 g/dL (11.0-16.0); MEAN CELL VOLUME 92.2 fL (81.0-99.0); MEAN CORPUSCULAR HEMOGLOBIN 30.9 pg (27.0-31.0); MEAN CORPUSCULAR HGB CONC 33.5 g/dL (33.0-37.0); MEAN PLATELET VOLUME 8.8 fL (7.2-11.7); RBC 3.78 Mil/uL (3.80-5.20); RED CELL DISTRIBUTION WIDTH 13.2 % (11.5-14.5); WHITE BLOOD COUNT 9.7 K/uL (4.8-10.8)
[2018-04-17 12:12] LABS: BLOOD UREA NITROGEN 9 mg/dL (7-17); CALCIUM 9.2 mg/dl (8.6-10.4); GFR NON-AFRICAN AMERICAN > 60
--- NOTE | 2018-04-17 13:46 | CP.PCM.PN ---
Subjective - Date & Time of Evaluation Date of Evaluation: 04/17/18 Time of Evaluation: 13:46 Objective - Vital Signs/Intake and Output Vital Signs (last 24 hours): Temp Pulse Resp BP Pulse Ox 97.6 F 50 L 20 130/62 95 04/17/18 07:00 04/17/18 08:25 04/17/18 07:00 04/17/18 07:00 04/17/18 07:00 Intake and Output: 04/17/18 04/17/18 06:59 18:59 Intake Total 100 Balance 100 - Medications Medications: Current Medications Amitriptyline HCl (Elavil) 10 mg PO HS [facility] Last Admin: 04/16/18 22:00 Dose: 10 mg Amlodipine Besylate (Norvasc) 10 mg PO DAILY [facility] Last Admin: 04/17/18 09:15 Dose: Not Given Aspirin (Ecotrin) 325 mg PO DAILY [facility] Last Admin: 04/17/18 09:58 Dose: 325 mg Ciprofloxacin (Cipro) 500 mg PO BID [facility]; Protocol Stop: 04/21/18 10:01 Last Admin: 04/17/18 09:58 Dose: 500 mg Dextrose (Dextrose 50% Inj) 0 ml IV STAT PRN; Protocol PRN Reason: Hypoglycemia Protocol Dextrose (Glutose 15) 0 gm PO ONCE PRN; Protocol PRN Reason: Hypoglycemia Protocol Donepezil HCl (Aricept) 10 mg PO [facility] Last Admin: 04/16/18 22:00 Dose: 10 mg Enoxaparin Sodium (Lovenox) 40 mg SC DAILY [facility] Last Admin: 04/17/18 09:58 Dose: 40 mg Glimepiride (Amaryl) 2 mg PO BID [facility] Last Admin: 04/16/18 09:31 Dose: 2 mg Glucagon (Glucagen Diagnostic Kit) 0 mg IM STAT PRN; Protocol PRN Reason: Hypoglycemia Protocol Insulin Aspart (Novolog) [facility]; Protocol Last Admin: 04/17/18 12:11 Dose: 3 unit Levetiracetam (Keppra) 500 mg PO BID [facility] Last Admin: 04/17/18 09:58 Dose: 500 mg Lisinopril (Zestril) 10 mg PO BID [facility] Last Admin: 04/17/18 09:58 Dose: 10 mg Magnesium Oxide (Mag-Ox) 400 mg PO BID [facility] Last Admin: 04/17/18 09:58 Dose: 400 mg Memantine (Namenda) 10 mg PO DAILY [facility] Last Admin: 04/17/18 09:58 Dose: 10 mg Metformin HCl (Glucophage) 1,000 mg PO BID [facility] Last Admin: 04/17/18 12:09 Dose: 1,000 mg Metoprolol Succinate (Toprol Xl) 150 mg PO DAILY [facility] Last Admin: 04/17/18 09:14 Dose: Not Given Rosuvastatin Calcium (Crestor) 40 mg PO HS [facility] Last Admin: 04/16/18 22:00 Dose: 40 mg - Labs Labs: 04/17/18 11:39 04/17/18 11:39 PT 11.5 SECONDS (9.7-12.2) 04/08/18 13:52 INR 1.1 04/08/18 13:52 APTT 32 SECONDS (21-34) 04/08/18 13:52 Assessment and Plan - Assessment and Plan (Free Text) Assessment: PLACE UND[facility] THE SERVICE OF DR Ingrid JAMISON AT [facility] ----CALL FOR ADMITTING ORDER CONTINUE HOME MEDICATION ORDER NEW PRESCRIPTION GIVEN CIPRO 500 MG PO Q12 H FOR 7 DAYS FLORASTOR 250 MG PO BID FOR 7 DAYS MAG OXIDE 400 MG PO BID TROPOL XL 150 MG PO DAILY [facility] PROTOC[facility] CALL DR Ingrid JAMISON FOR FURTHER ORDER
--- NOTE | 2018-04-17 15:57 | CP.PCM.PN ---
Subjective - Date & Time of Evaluation Date of Evaluation: 04/17/18 Time of Evaluation: 08:15 - Subjective Subjective: clinically same Objective - Vital Signs/Intake and Output Vital Signs (last 24 hours): Temp Pulse Resp BP Pulse Ox 97.6 F 61 20 130/62 95 04/17/18 07:00 04/17/18 12:00 04/17/18 07:00 04/17/18 07:00 04/17/18 07:00 Intake and Output: 04/17/18 04/17/18 06:59 18:59 Intake Total 100 Balance 100 - Medications Medications: Current Medications Amitriptyline HCl (Elavil) 10 mg PO [facility] Last Admin: 04/16/18 22:00 Dose: 10 mg Amlodipine Besylate (Norvasc) 10 mg PO DAILY [facility] Last Admin: 04/17/18 09:15 Dose: Not Given Aspirin (Ecotrin) 325 mg PO DAILY [facility] Last Admin: 04/17/18 09:58 Dose: 325 mg Ciprofloxacin (Cipro) 500 mg PO BID [facility]; Protocol Stop: 04/21/18 10:01 Last Admin: 04/17/18 09:58 Dose: 500 mg Dextrose (Dextrose 50% Inj) 0 ml IV STAT PRN; Protocol PRN Reason: Hypoglycemia Protocol Dextrose (Glutose 15) 0 gm PO ONCE PRN; Protocol PRN Reason: Hypoglycemia Protocol Donepezil HCl (Aricept) 10 mg PO [facility] Last Admin: 04/16/18 22:00 Dose: 10 mg Enoxaparin Sodium (Lovenox) 40 mg SC DAILY [facility] Last Admin: 04/17/18 09:58 Dose: 40 mg Glimepiride (Amaryl) 2 mg PO BID [facility] Last Admin: 04/16/18 09:31 Dose: 2 mg Glucagon (Glucagen Diagnostic Kit) 0 mg IM STAT PRN; Protocol PRN Reason: Hypoglycemia Protocol Insulin Aspart (Novolog) 0 unit SC [facility]; Protocol Last Admin: 04/17/18 12:11 Dose: 3 unit Levetiracetam (Keppra) 500 mg PO BID [facility] Last Admin: 04/17/18 09:58 Dose: 500 mg Lisinopril (Zestril) 10 mg PO BID [facility] Last Admin: 04/17/18 09:58 Dose: 10 mg Magnesium Oxide (Mag-Ox) 400 mg PO BID [facility] Last Admin: 04/17/18 09:58 Dose: 400 mg Memantine (Namenda) 10 mg PO DAILY [facility] Last Admin: 04/17/18 09:58 Dose: 10 mg Metformin HCl (Glucophage) 1,000 mg PO BID [facility] Last Admin: 04/17/18 12:09 Dose: 1,000 mg Metoprolol Succinate (Toprol Xl) 150 mg PO DAILY [facility] Last Admin: 04/17/18 09:14 Dose: Not Given Rosuvastatin Calcium (Crestor) 40 mg PO HS [facility] Last Admin: 04/16/18 22:00 Dose: 40 mg - Labs Labs: 04/17/18 11:39 04/17/18 11:39 PT 11.5 SECONDS (9.7-12.2) 04/08/18 13:52 INR 1.1 04/08/18 13:52 APTT 32 SECONDS (21-34) 04/08/18 13:52 - Constitutional Appears: Well - Head Exam Head Exam: ATRAUMATIC, NORMAL INSPECTION, NORMOCEPHALIC - Eye Exam Eye Exam: EOMI, Normal appearance, PERRL Pupil Exam: NORMAL ACCOMODATION, PERRL - ENT Exam ENT Exam: Mucous Membranes Moist, Normal Exam - Neck Exam Neck Exam: Full ROM, Normal Inspection. absent: Lymphadenopathy - Respiratory Exam Respiratory Exam: Decreased Breath Sounds - Cardiovascular Exam Cardiovascular Exam: REGULAR RHYTHM, +S1, +S2 - GI/Abdominal Exam GI & Abdominal Exam: Soft, Diminished Bowel Sounds - Rectal Exam Rectal Exam: Deferred
[2018-04-17 15:59] VITALS: BP 133/72; PULSE 63; TEMP 98
== END 2018-04-17 17:29 | DRG 690 ==
LOC: C.ER 12:55 → C.9E 15:20 → C.3T 16:23 → C.9E 16:32 → C.5S 16:33
PROVIDERS: ADMIT Internal Medicine Nephrology; ATTEND Internal Medicine Nephrology
DX: N39.0 Urinary tract infection, site not specified (principal); I69.351 Hemiplegia and hemiparesis following cerebral infarction affecting right dominant side; E87.1 Hypo-osmolality and hyponatremia; I45.89 Other specified conduction disorders; I47.2 Ventricular tachycardia; E86.0 Dehydration; I10 Essential (primary) hypertension; I49.3 Ventricular premature depolarization; E83.42 Hypomagnesemia; M62.81 Muscle weakness (generalized); G40.909 Epilepsy, unspecified, not intractable, without status epilepticus; E10.65 Type 1 diabetes mellitus with hyperglycemia; I70.0 Atherosclerosis of aorta; R29.6 Repeated falls; Z79.4 Long term (current) use of insulin; Z90.710 Acquired absence of both cervix and uterus; Z23 Encounter for immunization